=== PATIENT | male | born 1935 | race Caucasian/White ===

== ENCOUNTER 2016-10-21 11:55 | Emergency (ER) | payer MEDICARE ==
[~2016-10-21] VITALS: Ht 175.3 cm; Wt 105.2 kg
[~2016-10-21 11:55] MED LIST: ALBU1AER INH; ALLO100 PO; AZIT250T74 PO; GUAI200UDC PO; LISI40TA PO; LORTA5 PO; OSEL75 PO; SIMV20 PO
[2016-10-21 11:58] VITALS: PULSE 106; RESP 18; TEMP 97.3; O2SAT 94
[2016-10-21 12:15] VITALS: BP 140/73; PULSE 98; RESP 18; O2SAT 95
[2016-10-21] MEDS ORDERED: LISI40TA PO (12:16)
[2016-10-21] MEDS ORDERED: LEVO112T2 PO (12:16)
[2016-10-21] MEDS ORDERED: ALLO300T2 PO (12:16)
[2016-10-21] MEDS ORDERED: SIMV20TA PO (12:16)
[2016-10-21] MEDS ORDERED: PIOG15TA5 PO (12:16)
--- NOTE | 2016-10-21 12:59 | PD ---
HPI Chief Complaint: Fall Time Seen by Provider: 12:27 Travel History International Travel<30 days: No Contact w/Intl Traveler<30days: No Traveled to known affect area: No History of Present Illness HPI 81-year-old male arrives to the ER after he stumbled over his dog at home and is chest wall struck a cabinet on the ground. He's had some erythema overlying the region of the sternum in the inferior costal margin medially. He denies pleuritic chest pain. He has no chest pain at rest. He had no head injury or loss of consciousness. He takes no anticoagulants. He notes the chest wall pain is worse with movement but is otherwise unnoticeable. He also fell on both knees however has been ambulatory since. He has mild pain in the knees. He notes history of a abdominal aortic aneurysm 4.7 cm with the pending follow- up appointment for monitoring. PFSH Past Medical History Hx Anticoagulant Therapy: No AAA: Yes Arthritis: Yes Heart Rhythm Problems: Yes Cancer: No Cardiac Catheterization: Yes Cardiovascular Problems: Yes (HTN) High Cholesterol: Yes Chest Pain: Yes Congestive Heart Failure: No Diabetes: Yes Patient Takes Glucophage: No Endocrine: Yes Gout: Yes Genitourinary: Yes Hypertension: Yes Immune Disorder: No Kidney Stones: Yes (Multiple, required lithotripsy ) Musculoskeletal: Yes (GOUT) Neurologic: No Psychiatric: No Reproductive: No Respiratory: Yes Seizures: No Thyroid Disease: Yes Tetanus Vaccination: Unknown Influenza Vaccination: No Past Surgical History Cardiac Surgery: Yes (Ablation ) Eye Surgery: Yes (BILAT CATARACT SX) Genitourinary Surgery: Yes (KIDNEY STONE SX) Joint Replacement: Yes (BL hips) Pacemaker: No (BILAT HIP REPLACEMENTS.) Other Surgery: Yes (ablation, back surgery) Social History Alcohol Use: Yes (3-5 mixed drinks daily) Tobacco Use: No Substance Use: No Allergies-Medications (Allergen,Severity, Reaction): Coded Allergies: Penicillin (Verified Allergy, Severe, Hives, 10/21/16) Reported Meds & Prescriptions Reported Meds & Active Scripts Active Reported Levothyroxine (Levothyroxine Sodium) 112 Mcg Tab 112 Mcg PO DAILY Pioglitazone (Pioglitazone HCl) 15 Mg Tab 15 Mg PO DAILY Allopurinol 300 Mg Tab 300 Mg PO DAILY Lisinopril 40 Mg Tab 40 Mg PO DAILY Simvastatin 20 Mg Tab 20 Mg PO DAILY Review of Systems Except as stated in HPI: all other systems reviewed are Neg General / Constitutional: No: Fever Physical Exam Narrative GENERAL: 81-year-old male pleasant no acute distress SKIN: Focused skin assessment warm/dry. About 15 cm in total maximum diameter of abrasion/ecchymosis along the left anterior chest wall and slightly towards the left. There is no significant tenderness there. HEAD: Atraumatic. Normocephalic. EYES: Pupils equal and round. No scleral icterus. No injection or drainage. ENT: No nasal bleeding or discharge. Mucous membranes pink and moist. NECK: Trachea midline. No JVD. CARDIOVASCULAR: Regular rate and rhythm. No murmur appreciated. RESPIRATORY: Lungs are clear. There is no significant dyspnea. There is no pain with pressure against the anterior chest wall. GASTROINTESTINAL: Abdomen soft, non-tender, nondistended. Hepatic and splenic margins not palpable. MUSCULOSKELETAL: No obvious deformities. No clubbing. No cyanosis. No edema. Patient is ambulatory. There is normal range of motion at the knees bilaterally. Minimal tenderness upon the patellae present bilaterally. NEUROLOGICAL: Awake and alert. No obvious cranial nerve deficits. Motor grossly within normal limits. Normal speech. PSYCHIATRIC: Appropriate mood and affect; insight and judgment normal. Data Data Last Documented VS Vital Signs Date Time Temp Pulse Resp B/P Pulse Ox O2 Delivery O2 Flow Rate FiO2 10/21/16 12:15 98 18 140/73 95 Room Air 10/21/16 11:58 97.3 Vital signs reviewed MDM Medical Decision Making Medical Screen Exam Complete: Yes Emergency Medical Condition: Yes Medical Record Reviewed: Yes Differential Diagnosis Ecchymosis, contusion, erythema, abrasion, fall, knee fracture, atelectasis, pneumothorax Narrative Course Exam is fairly unimpressive. The patient has no pleuritic chest pain or shortness of breath. We'll send him home with a plan for follow-up with vascular surgery for monitoring of his AAA as scheduled. Diagnosis Primary Impression: Fall Qualified Code: W19.XXXA - Fall, initial encounter Additional Impression: Contusion of chest wall with intact skin Referrals: Primary Care Physician call for appointment Additional Instructions: You have a choice when it comes to health care, and we are glad that you chose [facility]. Hopefully, we have met your expectations on today's visit. You are welcome to return to [facility] at any time, as we are committed to meeting the health care needs of our community. Med/Other Pt SpecificInfo: No Change to Meds Disposition: 01 DISCHARGE HOME Condition: Stable Adi Watt MD Oct 21, 2016 12:59
== END 2016-10-21 13:10 | disposition home or self-care (01) ==
LOC: PHED 11:55
DX: S20.212A Contusion of left front wall of thorax, initial encounter (principal); M25.561 Pain in right knee; M25.562 Pain in left knee; E11.9 Type 2 diabetes mellitus without complications; I10 Essential (primary) hypertension; E07.9 Disorder of thyroid, unspecified; E78.00 Pure hypercholesterolemia, unspecified; W01.0XXA Fall on same level from slipping, tripping and stumbling without subsequent striking against object, initial encounter; Y92.009 Unspecified place in unspecified non-institutional (private) residence as the place of occurrence of the external cause; Z86.79 Personal history of other diseases of the circulatory system; Z87.39 Personal history of other diseases of the musculoskeletal system and connective tissue; Z87.448 Personal history of other diseases of urinary system
CPT/HCPCS: 99283

== ENCOUNTER 2017-06-06 22:47 | Inpatient (IN) | payer MEDICARE ==
[~2017-06-06] VITALS: Ht 175.3 cm; Wt 101.8 kg
[~2017-06-06 22:47] MED LIST changes: -ALBU1AER INH; -ALLO100 PO; +ALLO300T2 PO; -AZIT250T74 PO; -GUAI200UDC PO; +LEVO112T2 PO; -LORTA5 PO; -OSEL75 PO; +PIOG15TA5 PO; -SIMV20 PO; +SIMV20TA PO
[2017-06-06 22:50] VITALS: BP 169/88; PULSE 94; RESP 18; TEMP 98; O2SAT 95
[2017-06-06 23:00] VITALS: O2SAT 99
[2017-06-06] MEDS ORDERED: MONT10TA4 PO (23:06)
[2017-06-06] MEDS ORDERED: COQ1400C PO (23:06)
[2017-06-06] MEDS ORDERED: SODIUM CHLOR 0.9% 1000 ML INJ 1,000 ML IV SCH (23:21)
[2017-06-06] MEDS ORDERED: HYDROmorphone HCL PF 1 MG/ML VIAL IVS ONE (23:30)
[2017-06-06] MEDS ORDERED: SODIUM CHLORIDE 0.9% FLUSH 10 ML FLUSH IV FLUSH PRN (23:30)
[2017-06-06] MEDS ORDERED: ONDANSETRON HCL 4 MG/2 ML VIAL IV PUSH ONE (23:30)
[2017-06-06] MEDS ORDERED: PROCHLORPERAZINE INJ 10 MG/2 ML VIAL IV PUSH ONE (23:30)
[2017-06-06 23:35] LABS: AUTOMATED NEUTROPHIL # 8.2 TH/MM3 (1.8-7.7); BASOPHIL # 0.1 TH/MM3 (0-0.2); BASOPHIL % 0.8 % (0.0-2.0); EOSINOPHIL % 0.2 % (0.0-4.0); HEMATOCRIT 45.9 % (39.0-51.0); HEMO FLAGS DIFF FINAL; LYMPH % 16.1 % (9.0-44.0); LYMPHOCYTE # 1.7 TH/MM3 (1.0-4.8); MEAN CELL VOLUME 99.2 FL (80.0-100.0); MEAN CORPUSCULAR HEMOGLOBIN 33.6 PG (27.0-34.0); MEAN CORPUSCULAR HGB CONC 33.8 % (32.0-36.0); MONO % 5.5 % (0.0-8.0); NEUT % 77.4 % (16.0-70.0); PLATELET COUNT 148 TH/MM3 (150-450); RED BLOOD COUNT 4.63 MIL/MM3 (4.50-5.90); RED CELL DISTRIBUTION WIDTH 13.8 % (11.6-17.2); WHITE BLOOD COUNT 10.7 TH/MM3 (4.0-11.0)
[2017-06-06 23:49] LABS: APTT (PATIENT) 27.1 SEC (24.3-30.1); PROTHROMBIN TIME - PATIENT 10.7 SEC (9.8-11.6)
--- NOTE | 2017-06-06 23:51 | PD ---
HPI Chief Complaint: Abdominal Pain Time Seen by Provider: 23:21 Travel History International Travel<30 days: No Contact w/Intl Traveler<30days: No Traveled to known affect area: No History of Present Illness HPI The patient's 81 years old. He arrives b private vehicle. He has been vomiting for the last few hours. Started after he ate dinner. His had the same food and is not sick. He felt a sudden onset of pain mainly in the left abdomen. He has felt the pain since. No diarrhea. No fever. He has a history of abdominal aortic aneurysm which was last evaluated 10 months ago with a diameter 4.6 cm then. He follows with Dr. Carr in [place]. PFS Past Medical History Hx Anticoagulant Therapy: No AAA: Yes Arthritis: Yes Heart Rhythm Problems: Yes Cancer: No Cardiac Catheterization: Yes (ablation) Cardiovascular Problems: Yes (HTN) High Cholesterol: Yes Chest Pain: Yes Congestive Heart Failure: No Diabetes: Yes Patient Takes Glucophage: No Endocrine: Yes Gout: Yes Genitourinary: Yes Hypertension: Yes Immune Disorder: No Implanted Vascular Access Dvce: Yes Kidney Stones: Yes (Multiple, required lithotripsy ) Musculoskeletal: Yes (GOUT) Neurologic: No Psychiatric: No Reproductive: No Respiratory: Yes Seizures: No Thyroid Disease: Yes Past Surgical History Cardiac Surgery: Yes (Ablation ) Eye Surgery: Yes (BILAT CATARACT SX) Genitourinary Surgery: Yes (KIDNEY STONE SX) Joint Replacement: Yes (BL hips) Other Surgery: Yes (ablation, back surgery) Social History Alcohol Use: Yes (3-5 mixed drinks daily) Tobacco Use: No Substance Use: No Allergies-Medications (Allergen,Severity, Reaction): Coded Allergies: penicillin G (Unverified Allergy, Severe, Hives, 06/06/17) Reported Meds & Prescriptions Reported Meds & Active Scripts Active Reported Coq10 Maximum Strength (Coenzyme Q10 (Ubidecarenone)) 400 Mg Cap 200 Mg PO DAILY Montelukast (Montelukast Sodium) 10 Mg Tab 10 Mg PO HS Levothyroxine (Levothyroxine Sodium) 112 Mcg Tab 112 Mcg PO DAILY Pioglitazone (Pioglitazone HCl) 15 Mg Tab 15 Mg PO DAILY Allopurinol 300 Mg Tab 300 Mg PO DAILY Lisinopril 40 Mg Tab 40 Mg PO DAILY Simvastatin 20 Mg Tab 20 Mg PO DAILY Review of Systems Except as stated in HPI: all other systems reviewed are Neg General / Constitutional: No: Fever Gastrointestinal: Positive: Nausea, Vomiting, Abdominal Pain, No: Diarrhea Physical Exam Narrative GENERAL: 81-year-old male well-nourished well-developed mild to moderate distress frequent dry heaves SKIN: Focused skin assessment warm/dry. Well perfused. HEAD: Atraumatic. Normocephalic. EYES: Pupils equal and round. No scleral icterus. No injection or drainage. ENT: No nasal bleeding or discharge. Mucous membranes pink and moist. NECK: Trachea midline. No JVD. CARDIOVASCULAR: Regular rate and rhythm. No murmur appreciated. RESPIRATORY: No accessory muscle use. Clear to auscultation. Breath sounds equal bilaterally. GASTROINTESTINAL: There is no palpable pulsatile mass. There is minimal tenderness in the left side. MUSCULOSKELETAL: No obvious deformities. No clubbing. No cyanosis. No edema. NEUROLOGICAL: Awake and alert. No obvious cranial nerve deficits. Motor grossly within normal limits. Normal speech. PSYCHIATRIC: Appropriate mood and affect; insight and judgment normal. Data Data Last Documented VS Vital Signs Date Time Temp Pulse Resp B/P (MAP) Pulse Ox O2 Delivery O2 Flow Rate FiO2 06/06/17 22:50 98.0 94 18 169/88 (115) 95 VS reviewed Orders Orders Complete Blood Count With Diff (06/06/17 23:21) Comprehensive Metabolic Panel (06/06/17 23:21) Lipase (06/06/17 23:21) Lactic Acid (06/06/17 23:21) Prothrombin Time / Inr (Pt) (06/06/17 23:21) Act Partial Throm Time (Ptt) (06/06/17 23:21) Urinalysis - C+S If Indicated (06/06/17 23:21) Ct Abd/Pel W Iv Contrast(Rout) (06/06/17 23:21) Iv Access Insert/Monitor (06/06/17 23:21) Ecg Monitoring (06/06/17 23:21) Oximetry (06/06/17 23:21) Sodium Chlor 0.9% 1000 Ml Inj (Ns 1000 M (06/06/17 23:21) Sodium Chloride 0.9% Flush (Ns Flush) (06/06/17 23:30) Hydromorphone Pf Inj (Dilaudid Pf Inj) (06/06/17 23:30) Prochlorperazine Inj (Compazine Inj) (06/06/17 23:30) Ondansetron Inj (Zofran Inj) (06/06/17 23:30) Iohexol 350 Inj (Omnipaque 350 Inj) (06/07/17 00:20) Admit Order (Ed Use Only) (06/07/17 ) Stamping Die Maker / Telemetry JULIO ÉCSAR.Q8H (06/07/17 01:43) Vital Signs (Adult) Q4H (06/07/17 01:43) Diet Npo (06/07/17 Breakfast) Activity Bed Rest (06/07/17 01:43) Notify Dr: Other (06/07/17 01:43) Allopurinol (Zyloprim) (06/07/17 09:00) Levothyroxine (Synthroid) (06/07/17 06:00) Lisinopril (Prinivil) (06/07/17 09:00) Pravastatin (Pravachol) (06/07/17 21:00) Labs Laboratory Tests Test 06/06/17 23:26 06/06/17 23:28 White Blood Count 10.7 TH/MM3 Red Blood Count 4.63 MIL/MM3 Hemoglobin 15.5 GM/DL Hematocrit 45.9 % Mean Corpuscular Volume 99.2 FL Mean Corpuscular Hemoglobin 33.6 PG Mean Corpuscular Hemoglobin Concent 33.8 % Red Cell Distribution Width 13.8 % Platelet Count 148 TH/MM3 Mean Platelet Volume 9.3 FL Neutrophils (%) (Auto) 77.4 % Lymphocytes (%) (Auto) 16.1 % Monocytes (%) (Auto) 5.5 % Eosinophils (%) (Auto) 0.2 % Basophils (%) (Auto) 0.8 % Neutrophils # (Auto) 8.2 TH/MM3 Lymphocytes # (Auto) 1.7 TH/MM3 Monocytes # (Auto) 0.6 TH/MM3 Eosinophils # (Auto) 0.0 TH/MM3 Basophils # (Auto) 0.1 TH/MM3 CBC Comment DIFF FINAL Differential Comment Prothrombin Time 10.7 SEC Prothromb Time International Ratio 1.0 RATIO Activated Partial Thromboplast Time 27.1 SEC Blood Urea Nitrogen 12 MG/DL Creatinine 0.77 MG/DL Random Glucose 163 MG/DL Total Protein 7.8 GM/DL Albumin 3.9 GM/DL Calcium Level 9.3 MG/DL Alkaline Phosphatase 52 U/L Aspartate Amino Transf (AST/SGOT) 31 U/L Alanine Aminotransferase (ALT/SGPT) 25 U/L Total Bilirubin 0.6 MG/DL Sodium Level 137 MEQ/L Potassium Level 4.1 MEQ/L Chloride Level 102 MEQ/L Carbon Dioxide Level 22.5 MEQ/L Anion Gap 13 MEQ/L Estimat Glomerular Filtration Rate 97 ML/MIN Lipase 134 U/L Lactic Acid Level 2.7 mmol/L MDM Medical Decision Making Medical Screen Exam Complete: Yes Emergency Medical Condition: Yes Medical Record Reviewed: Yes Differential Diagnosis Ruptured aneurysm, colitis, pancreatitis, sepsis Narrative Course CBC & BMP Diagram 06/06/17 23:26 Total Protein 7.8, Albumin 3.9, Calcium Level 9.3, Alkaline Phosphatase 52, Aspartate Amino Transf (AST/SGOT) 31, Alanine Aminotransferase (ALT/SGPT) 25, Total Bilirubin 0.6 Last Impressions Abdomen/Pelvis CT 06/06/17 2321 Signed Impressions: Service Date/Time: Wednesday, June 07, 2017 00:17 - CONCLUSION: 1. No acute abnormality demonstrated. 2. There is an infrarenal abdominal aortic aneurysm that measures up to 5.5 cm in size. No evidence of leak or impending rupture. 3. Mild fatty infiltration of the liver. 4. Small calcified stones in the gallbladder. No perceptible inflammatory changes. No ductal stone or ductal dilatation. 5. Sigmoid colon diverticulosis without diverticulitis. Jimi Dee MD Patient reports feeling much better after 0.5 mg hydromorphone and Compazine and Zofran and IV fluids. Case discussed with vascular surgeon Dr. Stovall who requests nothing by mouth status and will evaluate in the morning. Case discussed with hospitalist Dr Almanza. Diagnosis Primary Impression: Abdominal pain Qualified Codes: R10.9 - Unspecified abdominal pain Additional Impression: Abdominal aneurysm Admitting Information Admitting Physician Requests: Admit Adi Watt MD Jun 06, 2017 23:51
[2017-06-06 23:55] LABS: ALT (GPT) 25 U/L (12-78); ANION GAP 13 MEQ/L (5-15); AST (GOT) 31 U/L (15-37); BICARBONATE 22.5 MEQ/L (21.0-32.0); BLOOD UREA NITROGEN 12 MG/DL (7-18); CHLORIDE 102 MEQ/L (98-107); GLOMERULAR FILTRATION RATE 97 ML/MIN (>89); POTASSIUM 4.1 MEQ/L (3.5-5.1); SODIUM (NA) 137 MEQ/L (136-145)
[2017-06-06 23:58] LABS: ALKALINE PHOSPHATASE 52 U/L (45-117); TOTAL BILIRUBIN ADULT 0.6 MG/DL (0.2-1.0)
[2017-06-07] VITALS (8 sets, daily range): BP systolic 112–149; BP diastolic 57–78; PULSE 85–99; RESP 17–20; TEMP 97.6–98.3; O2SAT 93–95
[2017-06-07] MEDS ORDERED: IOHEXOL 350 MG/ML 10 ML VIAL (for RAD DIAG) IVCONTRAST ONE (00:20)
--- NOTE | 2017-06-07 00:46 | RADRPT ---
EXAM DATE/TIME: 06/07/2017 00:17 [facility] COMPARISON: No previous studies available for comparison. INDICATIONS : Left sided abdominal pain. History of abdominal aneurysm. IV CONTRAST: 100 cc Omnipaque 350 (iohexol) IV ORAL CONTRAST: No oral contrast ingested. RADIATION DOSE: 19.90 CTDIvol (mGy) MEDICAL HISTORY : Aneurysm, abdominal. Cardiovascular disease Renal calculi.Hypertension. SURGICAL HISTORY : Bilateral hip replacements. ENCOUNTER: Initial ACUITY: 1 day PAIN SCALE: 4/10 LOCATION: Left abdomen TECHNIQUE: Volumetric scanning of the abdomen and pelvis was performed. Using automated exposure control and ad justment of the mA and/or kV according to patient size, radiation dose was kept as low as reasonably achievable to obtain optimal diagnostic quality images. DICOM format image data is available electro nically for review and comparison. FINDINGS: LOWER LUNGS: The visualized lower lungs are clear. LIVER: Liver is mildly fatty infiltrated. Multiple small stones are seen dependently in the gallbladder. No ductal stone or ductal dilatation. SPLEEN: Normal size without lesion. PANCREAS: Within normal limits. KIDNEYS: No hydronephrosis or hydroureter. No renal calculus. There is an 18 mm benign-appearing cyst of the l eft upper pole. ADRENAL GLANDS: Within normal limits. VASCULAR: There is an infrarenal nominal aortic aneurysm that measures up to 5.5 cm in size. A don't see any in flammatory changes or edema to suggest leak or impending rupture. BOWEL/MESENTERY: Mild sigmoid colon diverticulosis without perceptible diverticulitis. No bowel obstruction. No free a ir. ABDOMINAL WALL: Intact. RETROPERITONEUM: There is no lymphadenopathy. BLADDER: No wall thickening or mass. REPRODUCTIVE: Within normal limits. INGUINAL: There is no lymphadenopathy or hernia. MUSCULOSKELETAL: No acute bony abnormality demonstrated. CONCLUSION: 1. No acute abnormality demonstrated. 2. There is an infrarenal abdominal aortic aneurysm that measures up to 5.5 cm in size. No evidence o f leak or impending rupture. 3. Mild fatty infiltration of the liver. 4. Small calcified stones in the gallbladder. No perceptible inflammatory changes. No ductal stone or ductal dilatation. 5. Sigmoid colon diverticulosis without diverticulitis. Jimi Dee MD on June 07, 2017 at 0:39 Board Certified Radiologist. This report was verified electronically.
[2017-06-07] MEDS ORDERED: BISACODYL 10 MG SUPP RECTAL PRN (01:45)
[2017-06-07] MEDS ORDERED: ONDANSETRON HCL 4 MG/2 ML VIAL IVP PRN (01:45)
[2017-06-07] MEDS ORDERED: MAGNESIUM HYDROXIDE SUSP 30 ML CUP PO PRN (01:45)
[2017-06-07] MEDS ORDERED: ACETAMINOPHEN 325 MG TAB PO PRN (01:45)
[2017-06-07] MEDS ORDERED: SENNOSIDES 8.6 MG TAB PO PRN (01:45)
[2017-06-07] MEDS ORDERED: NALOXONE HCL 0.4 MG/ML AMP IV PUSH PRN (01:45)
[2017-06-07] MEDS ORDERED: SODIUM CHLORIDE 0.9% FLUSH 10 ML FLUSH IV FLUSH PRN (01:45)
[2017-06-07] MEDS ORDERED: LACTULOSE SYRUP 20 GM/30 ML CUP PO PRN (01:45)
[2017-06-07] MEDS ORDERED: hydrALAZINE HCL 20 MG/ML VIAL IV PUSH PRN (01:45)
[2017-06-07] MEDS: SODIUM CHLOR 0.9% 1000 ML INJ 1,000 ML IV SCH ×2 (02:11→11:44)
[2017-06-07 02:28] LABS: BLOOD, URINE NEG (NEG); COMMENT (UR) CULT NOT INDICATED; CULTURE IF INDICATED CULT NOT INDICATED; GLUCOSE,URINE NEG (NEG); KETONE, URINE 40 mg/dL (NEG); MUCUS URINE FEW /lpf (OCC); NITRITE,URINE NEG (NEG); PH, URINE 5.5 (5.0-8.5); SQUAMOUS EPITHELIAL CELL URINE <1 /hpf (0-5); URINE COLOR YELLOW (YELLW/STRAW)
--- NOTE | 2017-06-07 06:13 | HHI.HP ---
[facility]Staff Admission Diagnosis Abdominal Pain; AAA Diagnoses: Travel History International Travel<30 Days: No Contact w/Intl Traveler <30 Da: No Traveled to Known Affected Are: No History of Present Illness 81-year-old male with a past medical history significant for known AAA, hypertension, hyperlipidemia, type 2 diabetes mellitus and a remote history of A. fib status post ablation presents to the ED with intractable nausea/ vomiting. The patient states that he felt ill immediately after eating dinner. He felt sudden onset of pain in his lower abdomen that radiated around to his left flank. He denies fever/chills. Denies diarrhea. The patient has a history of a AAA which was last evaluated in [place] [address] Carr. At that time the patient believes the aneurysm measured 4.[address] of the abdomen/pelvis performed in the emergency department showed an infrarenal abdominal aortic aneurysm that measures up to 5.5 cm in size. No acute abnormalities were found. Patient's lab values were within normal limits with the exception of a lactic acid of 2.7. He was afebrile, vital signs stable. Review of Systems Denies fever or chills Denies blurry vision, otorrhea, rhinorrhea Denies sore throat and cough No chest pain, palpitations, shortness of breath Positive abdominal pain Positive nausea/vomiting. Denies constipation/diarrhea Denies muscle pain/weakness No rashes Past Family Social History Past Medical History Hypertension Hyperlipidemia Type 2 diabetes mellitus AAA Gout History of atrial fibrillation status post ablation Nephrolithiasis Hypothyroidism Past Surgical History Bilateral hip replacement Cardiac ablation for atrial fibrillation Cataract surgery Reported Medications Reported Meds & Active Scripts Active Reported Coq10 Maximum Strength (Coenzyme Q10 (Ubidecarenone)) 400 Mg Cap 200 Mg PO DAILY Montelukast (Montelukast Sodium) 10 Mg Tab 10 Mg PO HS Levothyroxine (Levothyroxine Sodium) 112 Mcg Tab 112 Mcg PO DAILY Pioglitazone (Pioglitazone HCl) 15 Mg Tab 15 Mg PO DAILY Allopurinol 300 Mg Tab 300 Mg PO DAILY Lisinopril 40 Mg Tab 40 Mg PO DAILY Simvastatin 20 Mg Tab 20 Mg PO DAILY Allergies: Coded Allergies: penicillin G (Unverified Allergy, Severe, Hives, 06/06/17) Family History Denies family history of heart disease or diabetes mellitus Social History Denies tobacco use. Reports drinking 5-6 scotches per evening. Denies marijuana or illicit drugs. Physical Exam Vital Signs Vital Signs Date Time Temp Pulse Resp B/P (MAP) Pulse Ox O2 Delivery O2 Flow Rate FiO2 06/07/17 04:00 98.1 93 20 136/68 (90) 94 06/07/17 02:30 98.0 94 20 126/60 (82) 95 06/07/17 02:00 06/06/17 23:00 99 Room Air 06/06/17 22:50 98.0 94 18 169/88 (115) 95 Physical Exam GENERAL: Obese, male lying in bed SKIN: No rashes, ecchymoses or lesions. Cool and dry. HEAD: Atraumatic. Normocephalic. No temporal or scalp tenderness. EYES: Pupils equal round and reactive. Extraocular motions intact. No scleral icterus. No injection or drainage. ENT: Nose without bleeding, purulent drainage or septal hematoma. Throat without erythema, tonsillar hypertrophy or exudate. Uvula midline. Airway patent. NECK: Trachea midline. No JVD or lymphadenopathy. Supple, nontender, no meningeal signs. CARDIOVASCULAR: Regular rate and rhythm without murmurs, gallops, or rubs. RESPIRATORY: Clear to auscultation. Breath sounds equal bilaterally. No wheezes , rales, or rhonchi. GASTROINTESTINAL: Abdomen obese, soft, nondistended. Diffusely tender to palpation worse in the lower quadrants. No peritoneal signs. No guarding. MUSCULOSKELETAL: Extremities without clubbing, cyanosis, or edema. No joint tenderness, effusion, or edema noted. No calf tenderness. Negative Homans sign bilaterally. NEUROLOGICAL: Awake and alert. Cranial nerves II through XII intact. Motor and sensory grossly within normal limits. Normal speech. Laboratory Laboratory Tests Test 06/06/17 23:26 06/06/17 23:28 06/07/17 02:17 06/07/17 05:30 White Blood Count 10.7 Red Blood Count 4.63 Hemoglobin 15.5 Hematocrit 45.9 Mean Corpuscular Volume 99.2 Mean Corpuscular Hemoglobin 33.6 Mean Corpuscular Hemoglobin Concent 33.8 Red Cell Distribution Width 13.8 Platelet Count 148 Mean Platelet Volume 9.3 Neutrophils (%) (Auto) 77.4 Lymphocytes (%) (Auto) 16.1 Monocytes (%) (Auto) 5.5 Eosinophils (%) (Auto) 0.2 Basophils (%) (Auto) 0.8 Neutrophils # (Auto) 8.2 Lymphocytes # (Auto) 1.7 Monocytes # (Auto) 0.6 Eosinophils # (Auto) 0.0 Basophils # (Auto) 0.1 CBC Comment DIFF FINAL Differential Comment Prothrombin Time 10.7 Prothromb Time International Ratio 1.0 Activated Partial Thromboplast Time 27.1 Blood Urea Nitrogen 12 Creatinine 0.77 Random Glucose 163 Total Protein 7.8 Albumin 3.9 Calcium Level 9.3 Alkaline Phosphatase 52 Aspartate Amino Transf (AST/SGOT) 31 Alanine Aminotransferase (ALT/SGPT) 25 Total Bilirubin 0.6 Sodium Level 137 Potassium Level 4.1 Chloride Level 102 Carbon Dioxide Level 22.5 Anion Gap 13 Estimat Glomerular Filtration Rate 97 Lipase 134 Lactic Acid Level 2.7 1.8 Urine Color YELLOW Urine Turbidity CLEAR Urine pH 5.5 Urine Specific [place] 1.038 Urine Protein 30 Urine Glucose (UA) NEG Urine Ketones 40 Urine Occult Blood NEG Urine Nitrite NEG Urine Bilirubin NEG Urine Urobilinogen LESS THAN 2.0 Urine Leukocyte Esterase NEG Urine RBC LESS THAN 1 Urine WBC 2 Urine Squamous Epithelial Cells <1 Urine Amorphous Sediment RARE Urine Mucus FEW Microscopic Urinalysis Comment CULT NOT INDICATED Result Diagram: 06/06/17232506/06/172325 Caprini VTE Risk Assessment Caprini VTE Risk Assessment: Mod/High Risk (score >= 2) Caprini Risk Assessment Model Point Value = 1 Point Value = 2 Point Value = 3 Point Value = 5 Age 41-60 Minor surgery BMI > 25 kg/m2 Swollen legs Varicose veins or History of unexplained or recurrent spontaneous Oral contraceptives or hormone replacement Sepsis (< 1 month) Serious lung disease, including pneumonia (< 1 month) Abnormal pulmonary function Acute myocardial infarction Congestive heart failure (< 1 month) History of inflammatory bowel disease Medical patient at bed rest Age 61-74 Arthroscopic surgery Major open surgery (> 45 min) Laparoscopic surgery (> 45 min) Malignancy Confined to bed (> 72 hours) Immobilizing plaster cast Central venous access Age >= 75 History of VTE Family history of VTE Factor V Leiden Prothrombin [id number] Lupus anticoagulant Anticardiolipin antibodies Elevated serum homocysteine Heparin-induced thrombocytopenia Other congenital or acquired thrombophilia Stroke (< 1 month) Elective arthroplasty Hip, pelvis, or leg fracture Acute spinal cord injury (< 1 month) Prophylaxis Regimen Total Risk Factor Score Risk Level Prophylaxis Regimen 0-1 Low Early ambulation 2 Moderate Order ONE of the following: *Sequential Compression Device (SCD) *Heparin 5000 units SQ BID 3-4 Higher Order ONE of the following medications: *Heparin 5000 units SQ TID *Enoxaparin/Lovenox 40 mg SQ daily (WT < 150 kg, CrCl > 30 mL/min) *Enoxaparin/Lovenox 30 mg SQ daily (WT < 150 kg, CrCl > 10-29 mL/min) *Enoxaparin/Lovenox 30 mg SQ BID (WT < 150 kg, CrCl > 30 mL/min) AND/OR *Sequential Compression Device (SCD) 5 or more Highest Order ONE of the following medications: *Heparin 5000 units SQ TID (Preferred with Epidurals) *Enoxaparin/Lovenox 40 mg SQ daily (WT < 150 kg, CrCl > 30 mL/min) *Enoxaparin/Lovenox 30 mg SQ daily (WT < 150 kg, CrCl > 10-29 mL/min) *Enoxaparin/Lovenox 30 mg SQ BID (WT < 150 kg, CrCl > 30 mL/min) AND *Sequential Compression Device (SCD) Assessment and Plan Assessment and Plan 81-year-old male with history of known AAA presents with intractable nausea/ vomiting. CT of the abdomen and pelvis was significant for a 0.9 cm increase in the aneurysm diameter in the past 10 months. 1. AAA Expanding since last imaging in August 2015, from 4.6 cm to 5.5 cm Consult vascular surgery, appreciate recommendations Patient may benefit from endovascular repair Nothing by mouth 2. Nausea/vomiting No electrolyte abnormalities Resolved with medication Lactic acid has returned to normal 3. Hypertension Continue lisinopril Hydralazine when necessary 4. Hyperlipidemia/hypothyroidism/gout Continue home medications FEN NPO NS at 100 cc/hr Electrolytes: monitor and replete prn Holding pharmacologic anticoagulation for possible procedure Physician Certification 2 Midnight Certification Type: Admission for Inpatient Services Order for Inpatient Services The services are ordered in accordance with Medicare regulations or non- Medicare payer requirements, as applicable. In the case of services not specified as inpatient-only, they are appropriately provided as inpatient services in accordance with the 2-midnight benchmark. Estimated LOS (days): 2 2 days is the estimated time the patient will need to remain in the hospital, assuming treatment plan goals are met and no additional complications. Post-Hospital Plan: Not yet determined Giulia Almanza MD Jun 07, 2017 06:13
[2017-06-07] MEDS ORDERED: DEXTROSE 50% IN WATER 50 ML VIAL(D50) IV PUSH PRN (06:30)
[2017-06-07] MEDS ORDERED: GLUCAGON 1 MG/ML VIAL OTHER PRN (06:30)
[2017-06-07] MEDS ORDERED: LORazepam 2 MG/ML VIAL IV PUSH PRN ×4 (06:30)
[2017-06-07] MEDS ORDERED: FLUMAZENIL 0.5 MG/5 ML VIAL IV PUSH PRN (06:30)
[2017-06-07] MEDS ORDERED: LORazepam 2 MG TAB PO PRN (06:30)
[2017-06-07] MEDS ORDERED: LORazepam 1 MG TAB PO PRN (06:30)
[2017-06-07] MEDS: DOCUSATE SODIUM 50 MG/SENNA 8.6 MG TAB PO SCH ×2 (07:59→21:01)
[2017-06-07] MEDS: LEVOTHYROXINE SODIUM 112 MCG TAB PO SCH (07:59)
[2017-06-07] MEDS: ALLOPURINOL 300 MG TAB PO SCH (07:59)
[2017-06-07] MEDS: LISINOPRIL 20 MG TAB PO SCH (07:59)
[2017-06-07] MEDS: INSULIN ASPART SUPPLEMENTAL SCALE SQ SCH ×4 (08:00→21:00)
[2017-06-07] MEDS: SODIUM CHLORIDE 0.9% FLUSH 10 ML FLUSH IV FLUSH SCH ×2 (09:00→21:00)
--- NOTE | 2017-06-07 09:17 | PD.VS.CON ---
History of Present Illness Chief Complaint: AAA Consult Requested by: ED History of Present Illness 81 yo male with known AAA that he has been following for some time. He presented to ED yesterday with wretching and abdominal pain that has largely subsided. No diarrhea. Notes pain was band-like from LLQ to RLQ. Past/Family/Social History Past Medical History HTN DM hypothyroidism AAA cataracts a-fib Past Surgical History a-fib ablation cataract surgery Family History no known family history of AAA Home Medications Reported Medications Coenzyme Q10 (Ubidecarenone) (Coq10 Maximum Strength) 400 Mg Cap, 200 MG PO DAILY 06/06/17 Montelukast (Montelukast) 10 Mg Tab, 10 MG PO HS, #30 TAB 0 Refills 06/06/17 Levothyroxine (Levothyroxine) 112 Mcg Tab, 112 MCG PO DAILY for Thyroid, #30 TAB 0 Refills 10/21/16 Pioglitazone (Pioglitazone) 15 Mg Tab, 15 MG PO DAILY for Blood Sugar Management , #30 TAB 0 Refills 10/21/16 Allopurinol (Allopurinol) 300 Mg Tab, 300 MG PO DAILY for Gout, #30 TAB 0 Refills 10/21/16 Lisinopril (Lisinopril) 40 Mg Tab, 40 MG PO DAILY for Blood Pressure Management , #30 TAB 0 Refills 10/21/16 Simvastatin (Simvastatin) 20 Mg Tab, 20 MG PO DAILY for Cholesterol Management, #30 TAB 0 Refills 10/21/16 Coded Allergies: penicillin G (Unverified Allergy, Severe, Hives, 06/06/17) Review of Systems Constitutional: COMPLAINS OF: Change in appetite, DENIES: Fever, Chills Gastrointestinal: COMPLAINS OF: Abdominal pain, Vomiting, DENIES: Constipation , Diarrhea Physical Exam Vitals/I&O Date Time Temp Pulse Resp B/P (MAP) Pulse Ox O2 Delivery O2 Flow Rate FiO2 06/07/17 08:00 98.3 95 17 112/57 (75) 93 06/07/17 04:00 98.1 93 20 136/68 (90) 94 06/07/17 02:30 98.0 94 20 126/60 (82) 95 06/07/17 02:00 06/06/17 23:00 99 Room Air 06/06/17 22:50 98.0 94 18 169/88 (115) 95 06/07/17 06/07/17 06/07/17 07:00 15:00 23:00 Intake Total 1000 ml Balance 1000 ml Neuro: alert, oriented, sitting in bed, MALIK HEENT: NC/AT Neck: no JVD Heart: reg rate, no M Lungs: clear B Abdomen: soft, NT, no tenderness in epigastrium to deep palpation + rectus diastasis Vascular: palpable femoral pulses Extremities: no popliteal aneurysms appreciated MALIK Laboratory Tests Test 06/06/17 23:26 06/06/17 23:28 06/07/17 02:17 06/07/17 05:30 White Blood Count 10.7 Red Blood Count 4.63 Hemoglobin 15.5 Hematocrit 45.9 Mean Corpuscular Volume 99.2 Mean Corpuscular Hemoglobin 33.6 Mean Corpuscular Hemoglobin Concent 33.8 Red Cell Distribution Width 13.8 Platelet Count 148 Mean Platelet Volume 9.3 Neutrophils (%) (Auto) 77.4 Lymphocytes (%) (Auto) 16.1 Monocytes (%) (Auto) 5.5 Eosinophils (%) (Auto) 0.2 Basophils (%) (Auto) 0.8 Neutrophils # (Auto) 8.2 Lymphocytes # (Auto) 1.7 Monocytes # (Auto) 0.6 Eosinophils # (Auto) 0.0 Basophils # (Auto) 0.1 CBC Comment DIFF FINAL Differential Comment Prothrombin Time 10.7 Prothromb Time International Ratio 1.0 Activated Partial Thromboplast Time 27.1 Blood Urea Nitrogen 12 Creatinine 0.77 Random Glucose 163 Total Protein 7.8 Albumin 3.9 Calcium Level 9.3 Alkaline Phosphatase 52 Aspartate Amino Transf (AST/SGOT) 31 Alanine Aminotransferase (ALT/SGPT) 25 Total Bilirubin 0.6 Sodium Level 137 Potassium Level 4.1 Chloride Level 102 Carbon Dioxide Level 22.5 Anion Gap 13 Estimat Glomerular Filtration Rate 97 Lipase 134 Lactic Acid Level 2.7 1.8 Urine Color YELLOW Urine Turbidity CLEAR Urine pH 5.5 Urine Specific [place] 1.038 Urine Protein 30 Urine Glucose (UA) NEG Urine Ketones 40 Urine Occult Blood NEG Urine Nitrite NEG Urine Bilirubin NEG Urine Urobilinogen LESS THAN 2.0 Urine Leukocyte Esterase NEG Urine RBC LESS THAN 1 Urine WBC 2 Urine Squamous Epithelial Cells <1 Urine Amorphous Sediment RARE Urine Mucus FEW Microscopic Urinalysis Comment CULT NOT INDICATED Last 48 hours Impressions Abdomen/Pelvis CT 06/06/17 2321 Signed Impressions: Service Date/Time: Wednesday, June 07, 2017 00:17 - CONCLUSION: 1. No acute abnormality demonstrated. 2. There is an infrarenal abdominal aortic aneurysm that measures up to 5.5 cm in size. No evidence of leak or impending rupture. 3. Mild fatty infiltration of the liver. 4. Small calcified stones in the gallbladder. No perceptible inflammatory changes. No ductal stone or ductal dilatation. 5. Sigmoid colon diverticulosis without diverticulitis. Jimi Dee MD Assessment and Plan Plan He has a 5.5. cm AAA but I don't think that is the cause of his abdominal pain. I reviewed the CT and it appears very chronic and not inflamed. Most importantly, the patient was completely nontender to deep epigastric palpation. I think his AAA based on size alone merits repair and I can set this up expeditously as an outpatient. Will need dedicated CTA (1mm cuts) of A/P for accurate pre-operative planning. If he has recurrent abdominal pain, will get CTA while in house and perform EVAR while in house. Otherwise, will arrange as outpatient. Ok to advance diet. Discussed with the patient and his Oziel Stovall MD FACS [employer] plant protection officer [facility] - Heart and Vascular Surgery at [facility] [address] [phone] Oziel Stovall MD Jun 07, 2017 09:17
--- NOTE | 2017-06-07 13:12 | RADRPT ---
EXAM DATE/TIME: 06/07/2017 00:00 [facility] COMPARISON: No previous studies available for comparison. INDICATIONS : Abdominal Pain, AAA TECHNIQUE: Four-cuff ankle and brachial pressures were obtained. Pulse cuff waveform tracings of the ankles were recorded, and ankle-brachial indices were calculated. PRESSURES (mmHg): Brachial (arm): Right 125 Left IV SITE Ankle: Right 153 Left 163 HATTIE: Right 1.22 Left 1.30 TBI: Right 1.22 Left 0.90 PULSED CUFF WAVEFORMS: Demonstrate normal amplitude bilaterally. CONCLUSION: Unremarkable ankle brachial indices. Stevan Eduardo MD on June 07, 2017 at 13:11 Board Certified Radiologist. This report was verified electronically.
[2017-06-07] MEDS ORDERED: PRAVASTATIN SOD 40 MG TAB PO SCH (21:00)
[2017-06-08] VITALS: BP 158/85; PULSE 86; RESP 20; TEMP 98; O2SAT 94
[2017-06-08] MEDS: SODIUM CHLOR 0.9% 1000 ML INJ 1,000 ML IV SCH ×2 (03:34→07:44)
[2017-06-08] MEDS: LEVOTHYROXINE SODIUM 112 MCG TAB PO SCH (06:36)
--- NOTE | 2017-06-08 06:38 | PD.VS.PN ---
Subjective Subjective/Hospital Course Pt with soreness R LQ immediately cephalad to R iliac crest. Not changed with po intake. No other abdominal complaints. Objective Vitals/I&O Date Time Temp Pulse Resp B/P (MAP) Pulse Ox O2 Delivery O2 Flow Rate FiO2 06/08/17 00:00 98.0 86 20 158/85 (109) 94 06/07/17 20:02 99 06/07/17 20:00 97.6 90 20 149/78 (101) 93 06/07/17 16:00 97.9 85 18 144/67 (92) 95 06/07/17 13:58 86 06/07/17 12:00 97.8 88 17 115/68 (84) 94 06/07/17 08:00 98.3 95 17 112/57 (75) 93 06/08/17 06/08/17 06/08/17 07:00 15:00 23:00 Intake Total 1000 ml Balance 1000 ml Physical Exam nontender to palpation anywhere in abdomen, including epigastrium Imaging Last 48 hours Impressions Abdomen/Pelvis CT 06/06/17 0081 Signed Impressions: Service Date/Time: Wednesday, June 07, 2017 00:17 - CONCLUSION: 1. No acute abnormality demonstrated. 2. There is an infrarenal abdominal aortic aneurysm that measures up to 5.5 cm in size. No evidence of leak or impending rupture. 3. Mild fatty infiltration of the liver. 4. Small calcified stones in the gallbladder. No perceptible inflammatory changes. No ductal stone or ductal dilatation. 5. Sigmoid colon diverticulosis without diverticulitis. Jimi Dee MD Assessment and Plan Plan I don't think his AAA is the source of the pain. I would like to get a CTA with thin cuts (previous one was 5mm cuts) for EVAR planning. Ok to d/c home after CTA and I'll arrange f/u for EVAR, likely in 1-2 weeks. If pain doesn't continue to improve, will do EVAR sooner. Pt agrees with plan. Oziel Stovall MD Jun 08, 2017 06:38
[2017-06-08 08:00] VITALS: BP 143/84; PULSE 80; RESP 18; TEMP 97.4; O2SAT 95
[2017-06-08] MEDS: INSULIN ASPART SUPPLEMENTAL SCALE SQ SCH ×2 (08:00→12:00)
[2017-06-08] MEDS: DOCUSATE SODIUM 50 MG/SENNA 8.6 MG TAB PO SCH (08:49)
[2017-06-08] MEDS: LISINOPRIL 20 MG TAB PO SCH (08:49)
[2017-06-08] MEDS: ALLOPURINOL 300 MG TAB PO SCH (08:49)
[2017-06-08] MEDS: SODIUM CHLORIDE 0.9% FLUSH 10 ML FLUSH IV FLUSH SCH (09:00)
[2017-06-08] MEDS ORDERED: INFLUENZA VIRUS VACCINE (QUADRIVALENT) 0.5 ML SYR IM ONE (10:00)
[2017-06-08] MEDS ORDERED: PNEUMOCOCCAL POLYVALENT INJ 25 MCG/0.5 ML SYR IM ONE (10:00)
--- NOTE | 2017-06-08 10:08 | HHI.PR ---
Subjective Remarks Patient reports he is feeling well today. No longer having abdominal pain. Objective Vitals Vital Signs Date Time Temp Pulse Resp B/P (MAP) Pulse Ox O2 Delivery O2 Flow Rate FiO2 06/08/17 08:00 97.4 80 18 143/84 (103) 95 06/08/17 00:00 98.0 86 20 158/85 (109) 94 06/07/17 20:02 99 06/07/17 20:00 97.6 90 20 149/78 (101) 93 06/07/17 16:00 97.9 85 18 144/67 (92) 95 06/07/17 13:58 86 06/07/17 12:00 97.8 88 17 115/68 (84) 94 I/O 06/07/17 06/07/17 06/07/17 06/08/17 06/08/17 06/08/17 07:00 15:00 23:00 07:00 15:00 23:00 Intake Total 1000 ml 400 ml 1490 ml Output Total 1200 ml 400 ml Balance 1000 ml -800 ml 1090 ml Intake Oral 0 ml 400 ml 220 ml IV Total 1000 ml 1270 ml Output Urine Total 1200 ml 400 ml # Voids 2 # Bowel Movements 0 0 Result Diagram: 06/06/17 2326 06/06/17 2326 Imaging Last Impressions Abdomen/Pelvis CT 06/08/17 0000 Signed Impressions: Service Date/Time: Thursday, June 08, 2017 11:07 - CONCLUSION: 1. Multilobular infrarenal abdominal aortic aneurysm measuring maximally 5.1 cm. This would be amenable to endovascular repair. 2. Cholelithiasis Vincent Smith MD Objective Remarks GENERAL: This is a well-nourished, well-developed patient, in no apparent distress. CARDIOVASCULAR: Normal rate and regular rhythm without murmurs, gallops, or rubs. RESPIRATORY: Good respiratory efforts. Breath sounds equal and clear to auscultation bilaterally. GASTROINTESTINAL: Abdomen soft, non-tender, non-distended. Normal active bowel sounds MUSCULOSKELETAL: Extremities without cyanosis, or edema. NEURO: Alert & Oriented x4 to person, place, time, situation. Moves all ext x4 PSYCH: Appropriate mood and affect. A/P Assessment and Plan 81-year-old male with history of known AAA presents with intractable nausea/ vomiting. Initially symptoms certainly due to abdominal aortic aneurysm. CT of the abdomen and pelvis was significant for a 0.9 cm increase in the aneurysm diameter in the past 10 months. Vascular surgery was consulted who evaluated the patient. The patient's symptoms significantly improved and vascular surgery recommend outpatient follow-up as his symptoms was unlikely due to the aneurysms. He is discharged home in good condition and will follow-up outpatient for repair of the aneurysm with vascular surgery. Hypertension Continue lisinopril Hyperlipidemia/hypothyroidism/gout Continue home medications Discharge Planning Discharge home in good condition Follow-up outpatient with: Vascular surgery Activity: Regular as tolerated Diet: Heart healthy Meds: Per med rec Cris Russell MD Jun 08, 2017 10:08
--- NOTE | 2017-06-08 10:10 | HHI.DCPOC ---
Discharge Care Plan Diagnosis: (1) Abdominal aneurysm (2) Abdominal pain Goals to Promote Your Health * To prevent worsening of your condition and complications * To maintain your health at the optimal level Directions to Meet Your Goals Take your medications as prescribed Follow your dietary instruction Follow activity as directed Keep your appointments as scheduled Take your immunizations and boosters as scheduled If your symptoms worsen call your PCP, if no PCP go to Urgent Care Center or Emergency Room Smoking is Dangerous to Your Health. Avoid second hand smoke Call the 24-hour hour crisis hotline for domestic abuse at Cris Russell MD Jun 08, 2017 10:10
[2017-06-08] MEDS ORDERED: IOHEXOL 350 MG/ML 10 ML VIAL (for RAD DIAG) IVCONTRAST ONE (11:54)
--- NOTE | 2017-06-08 14:36 | RADRPT ---
EXAM DATE/TIME: 06/08/2017 11:07 [facility] COMPARISON: No previous studies available for comparison. INDICATIONS : Abdominal aortic aneurysm. IV CONTRAST: 70 cc Omnipaque 350 (iohexol) IV ORAL CONTRAST: No oral contrast ingested. RADIATION DOSE: 7.34 CTDIvol (mGy) MEDICAL HISTORY : Aneurysm, abdominal. Cardiovascular disease Renal calculi.Hypertension. SURGICAL HISTORY : None. ENCOUNTER: Initial ACUITY: 1 day PAIN SCALE: 4/10 LOCATION: Bilateral upper quadrant TECHNIQUE: Volumetric scanning was performed using a multi-row detector CT scanner. The data was post processed with a variety of visualization algorithms including full volume maximum intensity projection, multi -planar sliding thin slab reformation, curved planar reformation, and surface rendering techniques. Using automated exposure control and adjustment of the mA and/or kV according to patient size, radiat ion dose was kept as low as reasonably achievable to obtain optimal diagnostic quality images. DICOM format image data is available electronically for review and comparison. FINDINGS: There is parenchymal scarring on the left. Coronary artery calcifications are present. The liver and spleen are normal in size and no focal defects are identified. There are multiple stone s within the gallbladder without wall thickening or pericholecystic fluid the largest measuring 3 mm. The pancreas demonstrates no evidence of mass and there is no dilatation of the pancreatic duct. The adrenal glands and kidneys appear normal bilaterally. No hydronephrosis or mass lesions are identifi ed. Examination demonstrates an infrarenal abdominal aortic aneurysm measuring 5.1 cm at the level the or aiyana bifurcation with bilobular components more superiorly measuring 4 cm and 4.7 cm. This terminates at the level of aortic bifurcation. The iliac vessels are intact. The renal artery origins are patent bilaterally. The celiac axis and superior mesenteric artery origins are also patent. CONCLUSION: 1. Multilobular infrarenal abdominal aortic aneurysm measuring maximally 5.1 cm. This would be amenab le to endovascular repair. 2. Cholelithiasis Vincent Smith MD on June 08, 2017 at 14:30 Board Certified Radiologist. This report was verified electronically.
== END 2017-06-08 13:59 | disposition home or self-care (01) | DRG 301 ==
LOC: NEPE 22:47 → NEDA 06-07 01:45 → N07A 06-07 02:42
PROVIDERS: ADMIT Family Medicine; ATTEND Family Medicine
DX: I71.4 Abdominal aortic aneurysm, without rupture (principal); E11.9 Type 2 diabetes mellitus without complications; I10 Essential (primary) hypertension; E78.5 Hyperlipidemia, unspecified; R11.2 Nausea with vomiting, unspecified; E03.9 Hypothyroidism, unspecified; M10.9 Gout, unspecified; Z23 Encounter for immunization; M19.90 Unspecified osteoarthritis, unspecified site; Z88.0 Allergy status to penicillin; Z96.643 Presence of artificial hip joint, bilateral
CPT/HCPCS: 74174; 74177; 80053; 81001; 82948; 83605; 83690; 85025; 85610; 85730; 90686; 90732; 93922; 96361; 96374; 96375; J0780; J1170; J2405; J7030; Q2038; Q9967

== ENCOUNTER 2017-06-29 08:00 | Inpatient (IN) | payer MEDICARE ==
[~2017-06-29] VITALS: Ht 175.3 cm; Wt 104.5 kg
[~2017-06-29 08:00] MED LIST changes: +COQ1400C PO; +MONT10TA4 PO
[2017-06-30] MEDS ORDERED: METOPROLOL TARTRATE 25 MG TAB PO PRN (10:00)
[2017-06-30] MEDS ORDERED: SODIUM CHLORID 0.9% 500 ML IV PRN (10:00)
[2017-06-30] MEDS ORDERED: CHLORHEXIDINE GLUCONATE 2 % 1 PACK (2 CLOTHS) TOPICAL PRN (10:00)
[2017-06-30] MEDS ORDERED: LACTATED RINGER'S 1000 ML IV PRN (10:00)
[2017-06-30] MEDS ORDERED: POVIDONE IODINE 5% (ANTISEPSIS KIT) 4 APPLICATIONS EACH NARE PRN (10:00)
--- NOTE | 2017-06-30 10:57 | HHI.HP ---
History of Present Illness Chief Complaint: AAA History of Present Illness 81 yo male with asymptomatic AAA. Adm with abdominal pain in Nov but not related. Abdominal pain better. Ready for elective endovascular repair. Past/Family/Social History Past Medical History HTN DM AAA A fib cataracts Past Surgical History cataracts ablation Social History not present smoker Family History NC Home Medications Reported Medications Coenzyme Q10 (Ubidecarenone) (Coq10 Maximum Strength) 400 Mg Cap, 200 MG PO DAILY 06/06/17 Montelukast (Montelukast) 10 Mg Tab, 10 MG PO HS, #30 TAB 0 Refills 06/06/17 Levothyroxine (Levothyroxine) 112 Mcg Tab, 112 MCG PO DAILY for Thyroid, #30 TAB 0 Refills 10/21/16 Pioglitazone (Pioglitazone) 15 Mg Tab, 15 MG PO DAILY for Blood Sugar Management , #30 TAB 0 Refills 10/21/16 Allopurinol (Allopurinol) 300 Mg Tab, 300 MG PO DAILY for Gout, #30 TAB 0 Refills 10/21/16 Lisinopril (Lisinopril) 40 Mg Tab, 40 MG PO DAILY for Blood Pressure Management , #30 TAB 0 Refills 10/21/16 Simvastatin (Simvastatin) 20 Mg Tab, 20 MG PO DAILY for Cholesterol Management, #30 TAB 0 Refills 10/21/16 Coded Allergies: penicillin G (Unverified Allergy, Severe, Hives, 06/29/17) Review of Systems Constitutional: COMPLAINS OF: Night Sweats, DENIES: Fever Cardiovascular: DENIES: Chest pain Gastrointestinal: DENIES: Abdominal pain Physical Exam Vitals/I&O Date Time Temp Pulse Resp B/P (MAP) Pulse Ox O2 Delivery O2 Flow Rate FiO2 06/30/17 10:09 97.6 73 18 141/87 (105) 97 Neuro: alert, oriented, jovial HEENT: NC/AT Neck: no JVD; trachea midline Heart: reg rate, no M Lungs: clear B Abdomen: NT Vascular: palp femoral Extremities: no CCE Hct 46 plt 148 cr 0.8 CTA reviewed Caprini VTE Risk Assessment Caprini VTE Risk Assessment: Mod/High Risk (score >= 2) Caprini Risk Assessment Model Point Value = 1 Point Value = 2 Point Value = 3 Point Value = 5 Age 41-60 Minor surgery BMI > 25 kg/m2 Swollen legs Varicose veins or History of unexplained or recurrent spontaneous Oral contraceptives or hormone replacement Sepsis (< 1 month) Serious lung disease, including pneumonia (< 1 month) Abnormal pulmonary function Acute myocardial infarction Congestive heart failure (< 1 month) History of inflammatory bowel disease Medical patient at bed rest Age 61-74 Arthroscopic surgery Major open surgery (> 45 min) Laparoscopic surgery (> 45 min) Malignancy Confined to bed (> 72 hours) Immobilizing plaster cast Central venous access Age >= 75 History of VTE Family history of VTE Factor V Leiden Prothrombin [id number] Lupus anticoagulant Anticardiolipin antibodies Elevated serum homocysteine Heparin-induced thrombocytopenia Other congenital or acquired thrombophilia Stroke (< 1 month) Elective arthroplasty Hip, pelvis, or leg fracture Acute spinal cord injury (< 1 month) Prophylaxis Regimen Total Risk Factor Score Risk Level Prophylaxis Regimen 0-1 Low Early ambulation 2 Moderate Order ONE of the following: *Sequential Compression Device (SCD) *Heparin 5000 units SQ BID 3-4 Higher Order ONE of the following medications: *Heparin 5000 units SQ TID *Enoxaparin/Lovenox 40 mg SQ daily (WT < 150 kg, CrCl > 30 mL/min) *Enoxaparin/Lovenox 30 mg SQ daily (WT < 150 kg, CrCl > 10-29 mL/min) *Enoxaparin/Lovenox 30 mg SQ BID (WT < 150 kg, CrCl > 30 mL/min) AND/OR *Sequential Compression Device (SCD) 5 or more Highest Order ONE of the following medications: *Heparin 5000 units SQ TID (Preferred with Epidurals) *Enoxaparin/Lovenox 40 mg SQ daily (WT < 150 kg, CrCl > 30 mL/min) *Enoxaparin/Lovenox 30 mg SQ daily (WT < 150 kg, CrCl > 10-29 mL/min) *Enoxaparin/Lovenox 30 mg SQ BID (WT < 150 kg, CrCl > 30 mL/min) AND *Sequential Compression Device (SCD) Assessment and Plan Plan EVAR today. Risks and benefits discussed with patient and family. to OR Discharge Planning : [phone] Oziel Stovall MD Jun 30, 2017 10:57
[2017-06-30] MEDS ORDERED: HEPARIN SODIUM - IV 10,000 UNITS/10 ML VIAL ONE (11:37)
[2017-06-30] MEDS ORDERED: PROTAMINE SULFATE 50 MG/5 ML VIAL ONE (11:38)
[2017-06-30] MEDS ORDERED: ACETAMINOPHEN 1000 MG/100 ML 100 ML IV ONE (11:39)
[2017-06-30] MEDS ORDERED: VANCOMYCIN HCL 1000 MG VIAL ONE (12:09)
[2017-06-30] MEDS ORDERED: SODIUM CHLOR 0.9% 250 ML INJ 250 ML ONE (12:09)
[2017-06-30] MEDS ORDERED: IOHEXOL 300 MG/ML 100 ML BTL (for Rad CT) OTHER ONE (12:15)
--- NOTE | 2017-06-30 13:28 | HHI.PR ---
Immediate Post Op Note Procedure Date: Jun 30, 2017 Pre Op Diagnosis: AAA Post Op Diagnosis: AAA Surgeon: Oziel Stovall Linux Network Administrator(s): Dayana Vale Procedure: EVAR with 2 docking limbs B POWER WASHER Perclose Findings: successful exclusion of AAA + Doppler signals in feet Complications: none Specimen(s) removed: none Estimated blood loss: 75mL Anesthesia: General Drains: None Fluids: 2400mL IVF Urinary Output (mLs): 400 Patient to: PACU Patient Condition: Good Implant/Devices: SEE IMPLANT LOG (if applicable) Date/Time of Procedure: SEE SURGICAL CARE RECORD Oziel Stovall MD Jun 30, 2017 13:28
[2017-06-30] MEDS ORDERED: LACTULOSE SYRUP 20 GM/30 ML CUP PO PRN (13:30)
[2017-06-30] MEDS ORDERED: BISACODYL 10 MG SUPP RECTAL PRN (13:30)
[2017-06-30] MEDS ORDERED: SENNOSIDES 8.6 MG TAB PO PRN (13:30)
[2017-06-30] MEDS ORDERED: MAGNESIUM HYDROXIDE SUSP 30 ML CUP PO PRN (13:30)
[2017-06-30] MEDS ORDERED: HYDROmorphone HCL 2 MG TAB PO PRN (13:30)
--- NOTE | 2017-06-30 14:08 | EKG ---
Date Performed: 06/30/2017 Time Performed: 10:27:21 PTAGE: 82 years EKG: Sinus rhythm WITH FIRST DEGREE AV BLOCK ABNORMAL ECG Compared to prior tracing no significant change PREVIOUS TRACING : 08/28/2014 19.03 DOCTOR: Lilly Hoffman Interpretating Date/Time 06/30/2017 14:06:08
[2017-06-30] MEDS ORDERED: *morphine SULFATE 8 MG/ML PERIprocedure ONLY ONE (14:09)
[2017-06-30] MEDS ORDERED: DO NOT ADM ANY ANTICOAGULANT DRUGS PRN (15:00)
[2017-06-30 16:15] VITALS: BP 117/67; PULSE 76; RESP 16; TEMP 98; O2SAT 99
[2017-06-30 19:30] VITALS: BP 148/80; PULSE 72; PULSE 78; RESP 18; TEMP 98.4; O2SAT 98
[2017-06-30] MEDS: FAMOTIDINE 20 MG TAB PO SCH (20:58)
[2017-06-30] MEDS: DOCUSATE SODIUM 50 MG/SENNA 8.6 MG TAB PO SCH (20:58)
[2017-06-30] MEDS: PRAVASTATIN SOD 40 MG TAB PO SCH (20:58)
[2017-06-30] MEDS: MONTELUKAST SODIUM 10 MG TAB PO SCH (21:00)
[2017-06-30 23:00] VITALS: PULSE 91
[2017-07-01] VITALS (11 sets, daily range): BP systolic 112–156; BP diastolic 57–83; PULSE 87–100; RESP 16–20; TEMP 99.1–100.8; O2SAT 92–98
[2017-07-01 05:59] LABS: HEMATOCRIT 38.5 % (39.0-51.0); MEAN CELL VOLUME 99.2 FL (80.0-100.0); MEAN CORPUSCULAR HEMOGLOBIN 33.2 PG (27.0-34.0); MEAN CORPUSCULAR HGB CONC 33.5 % (32.0-36.0); PLATELET COUNT 104 TH/MM3 (150-450); RED BLOOD COUNT 3.89 MIL/MM3 (4.50-5.90); RED CELL DISTRIBUTION WIDTH 13.4 % (11.6-17.2); REVIEW FLAG FINAL; WHITE BLOOD COUNT 7.9 TH/MM3 (4.0-11.0)
[2017-07-01 06:18] LABS: BICARBONATE 28.9 MEQ/L (21.0-32.0); POTASSIUM 4.3 MEQ/L (3.5-5.1)
[2017-07-01] MEDS: LEVOTHYROXINE SODIUM 112 MCG TAB PO SCH (07:59)
[2017-07-01] MEDS: FAMOTIDINE 20 MG TAB PO SCH ×2 (08:09→21:01)
[2017-07-01] MEDS: PIOGLITAZONE HCL 15 MG TAB PO SCH (08:09)
[2017-07-01] MEDS: ALLOPURINOL 300 MG TAB PO SCH (08:09)
[2017-07-01] MEDS: ASPIRIN EC 325 MG TABEC PO SCH (08:09)
[2017-07-01] MEDS: DOCUSATE SODIUM 50 MG/SENNA 8.6 MG TAB PO SCH ×2 (08:09→21:01)
[2017-07-01] MEDS: LISINOPRIL 20 MG TAB PO SCH (08:10)
[2017-07-01] MEDS ORDERED: COENZYME Q10 200 MG PO SCH (09:00)
[2017-07-01] MEDS ORDERED: TAMSULOSIN HCL 0.4 MG CAP PO SCH (09:00)
--- NOTE | 2017-07-01 09:40 | MP ---
cc: TONY STOVALL MD DATE OF SURGERY 06/30/2017 PREOPERATIVE DIAGNOSIS Abdominal aortic aneurysm POSTOPERATIVE DIAGNOSIS Abdominal aortic aneurysm PROCEDURE Endovascular exclusion of an abdominal aortic aneurysm with a bifurcated device using two docking limbs. ATTENDING PHYSICIAN Tony Stovall MD JEWELRY CASTING MODEL MAKER SURGEON Dayana Carpenter ANESTHESIA General INDICATIONS Mr. Walsh is a 82-year-old gentleman with an abdominal aortic aneurysm that appears amenable to endovascular repair. He is taken to the operating room for this procedure. DESCRIPTION OF PROCEDURE Informed consent was obtained from the patient. He was taken to the operating room and placed supine on the operating room table and an appropriate time-out was taken to ensure the patient's identity, operative site and planned procedure. One gram of vancomycin was initiated prior to the skin incision and will be discontinued after a single preoperative dose. Vancomycin was chosen because of the patient's penicillin allergy. Everyone in the room agreed with the time out and we proceeded. He was prepped from nipples to his knees. A 21 gauge micropuncture needle was used to access both common femoral arteries. This was exchanged using Seldinger technique for micropuncture sheath through which a 0.035 STORQ wire was introduced. The micropuncture sheath was exchanged for a 5-Macanese sheath which was used to dilate skin, subcutaneous tracts and arteriotomy. Two Perclose ProGlide sutures were inserted and tagged. These will be used later. A short 8-Macanese sheath was placed in the right and an 8-Macanese 25 cm was placed on the left. The patient was systemically heparinized and throughout the remainder of the case, the ACT was kept greater than 250. STORQ wires were advanced up the proximal descending thoracic aorta. Over the left hand STORQ wire, a flush catheter was placed over the right hand STORQ wire and a vertebral catheter was placed and the STORQ was exchanged for a single curved Lunderquist wire. The vertebral catheter was removed. The short 8-Macanese sheath was removed and Kyle dilators were used to dilate the skin, subcutaneous tract and arteriotomy and the main device, which was a StrataCloud-FreeWavz 30 x 111 was introduced up the right-hand side orientating it appropriately. An angiogram was performed which located the renal arteries and the device was deployed such that the proximal aspect of fabric was immediately caudal to the lower renal artery. The top cap was then released thereby deploying the bare metal proximal spring. A road-runner wire was then advanced through the flush catheter up the left-hand side and the flush catheter was exchanged for a vertebral catheter and using the vertebral catheter and the road runner, we were able to navigate into the contralateral gate and this was confirmed angiographically. The Lunderquist wire was then advanced up to the proximal descending thoracic aorta from the left-hand side and the vertebral catheter was exchanged for a marker flush catheter. This was used to locate the left hypogastric artery and once this was located, the contralateral limb, which was a Zenith 16 x 56 was introduced and deployed with sufficient overlap. The remainder of the main device was deployed. The top cap was recaptured. A marker catheter was then placed in the right-hand delivery sheath which allowed location of the right hypogastric artery and the right or ipsilateral limb was then inserted and deployed. This was a Zenith 20 x 74 limb. The proximal and distal ends were all balloon angioplastied with a Coda balloon and a completion angiogram showed excellent result without any recoil extravasation. There was no type 1A, B or type 3 endoleak and both renal arteries and both hypogastric arteries filled quite nicely. The wire, catheter and sheaths were removed. Manual pressure was in the groins as the Perclose were tied down. There were good Doppler signals in the feet and the heparin reversed with protamine. 4-0 Monocryl was placed in both groin skin incisions. Sponge and needle counts were correct at the end of the case. I was present and scrubbed for the entire procedure. MD SABRINA Luna/STAN /4:45 AM /9:06 AM
--- NOTE | 2017-07-01 10:20 | PD.VS.PN ---
Subjective POD #: 1 Procedure(s): EVAR Subjective/Hospital Course doing well except urinary retention since Hollis out. After voiding trial, had bladder scan for 650. Pt c/o appropriate lower abdominal discomfort. No groin pain and feet ok Objective Vitals/I&O Date Time Temp Pulse Resp B/P (MAP) Pulse Ox O2 Delivery O2 Flow Rate FiO2 07/01/17 10:10 95 Nasal Cannula 2.00 07/01/17 08:00 99.7 89 16 139/80 (99) 95 07/01/17 08:00 98 Nasal Cannula 3.00 07/01/17 08:00 89 07/01/17 05:40 18 07/01/17 03:30 94 Nasal Cannula 3.00 07/01/17 03:30 100 07/01/17 03:00 99.1 94 20 138/73 (94) 94 07/01/17 00:00 100.8 98 18 144/83 (103) 98 06/30/17 23:30 93 Nasal Cannula 2.00 06/30/17 23:00 91 06/30/17 19:30 97 Nasal Cannula 2.00 06/30/17 19:30 72 06/30/17 19:30 98.4 78 18 148/80 (102) 98 06/30/17 16:15 98.0 76 16 117/67 (84) 99 06/30/17 16:15 99 Nasal Cannula 2.00 06/30/17 16:15 76 06/30/17 16:15 16 06/30/17 16:00 68 16 110/55 (73) 98 Nasal Cannula 2 06/30/17 15:30 70 16 106/57 (73) 98 Nasal Cannula 2 06/30/17 15:00 72 16 105/56 (72) 95 Nasal Cannula 2 06/30/17 14:45 72 16 101/59 (73) 97 Nasal Cannula 2 06/30/17 14:30 76 16 109/57 (74) 95 Nasal Cannula 2 06/30/17 14:15 76 16 104/55 (71) 97 Nasal Cannula 2 06/30/17 14:00 80 16 120/62 (81) 97 Nasal Cannula 2 06/30/17 13:47 97.5 86 16 111/59 (76) 93 Nasal Cannula 2 07/01/17 07/01/17 07/01/17 07:00 15:00 23:00 Intake Total 960 ml Output Total 325 ml Balance 635 ml Exam: L groin ecchymotic but minimal tenderness R groin soft feet warm and palpable pulses Laboratory Laboratory Tests Test 07/01/17 04:57 White Blood Count 7.9 Red Blood Count 3.89 Hemoglobin 12.9 Hematocrit 38.5 Mean Corpuscular Volume 99.2 Mean Corpuscular Hemoglobin 33.2 Mean Corpuscular Hemoglobin Concent 33.5 Red Cell Distribution Width 13.4 Platelet Count 104 Mean Platelet Volume 9.2 Blood Urea Nitrogen 8 Creatinine 0.75 Random Glucose 144 Calcium Level 8.3 Sodium Level 139 Potassium Level 4.3 Chloride Level 104 Carbon Dioxide Level 28.9 Anion Gap 6 Estimat Glomerular Filtration Rate 99 Assessment and Plan Plan POD#1 s/p EVAR urinary retention 1. I/O cath this morning and start Flomax 2. If able to void, can d/c later today, otherwise will replace Hollis and call urology Discharge Planning Today if voids : [phone] Oziel Stovall MD Jul 01, 2017 10:20
[2017-07-01] MEDS ORDERED: ENOXAPARIN SODIUM 40 MG/0.4 ML SYRINGE SQ SCH (13:00)
[2017-07-01] MEDS: MONTELUKAST SODIUM 10 MG TAB PO SCH (21:01)
[2017-07-01] MEDS: PRAVASTATIN SOD 40 MG TAB PO SCH (21:01)
[2017-07-02 03:09] VITALS: BP 123/68; PULSE 99; RESP 18; TEMP 99.3; O2SAT 94
[2017-07-02 03:10] VITALS: PULSE 109
[2017-07-02 06:31] LABS: HEMATOCRIT 36.8 % (39.0-51.0); MEAN CELL VOLUME 99.1 FL (80.0-100.0); MEAN CORPUSCULAR HEMOGLOBIN 33.9 PG (27.0-34.0); MEAN CORPUSCULAR HGB CONC 34.2 % (32.0-36.0); PLATELET COUNT 90 TH/MM3 (150-450); RED BLOOD COUNT 3.71 MIL/MM3 (4.50-5.90); RED CELL DISTRIBUTION WIDTH 13.8 % (11.6-17.2); WHITE BLOOD COUNT 7.2 TH/MM3 (4.0-11.0)
[2017-07-02 06:42] LABS: REVIEW FLAG FINAL
[2017-07-02 06:51] LABS: BICARBONATE 27.1 MEQ/L (21.0-32.0); POTASSIUM 3.9 MEQ/L (3.5-5.1)
[2017-07-02 07:43] VITALS: PULSE 93
[2017-07-02 07:44] VITALS: BP 140/72; PULSE 92; RESP 18; TEMP 99.3; O2SAT 95
[2017-07-02] MEDS ORDERED: TAMSULOSIN HCL 0.4 MG CAP PO SCH (09:00)
[2017-07-02] MEDS: ALLOPURINOL 300 MG TAB PO SCH (09:03)
[2017-07-02] MEDS: ASPIRIN EC 325 MG TABEC PO SCH (09:04)
[2017-07-02] MEDS: LISINOPRIL 20 MG TAB PO SCH (09:04)
[2017-07-02] MEDS: LEVOTHYROXINE SODIUM 112 MCG TAB PO SCH (09:04)
[2017-07-02] MEDS: DOCUSATE SODIUM 50 MG/SENNA 8.6 MG TAB PO SCH (09:04)
[2017-07-02] MEDS: FAMOTIDINE 20 MG TAB PO SCH (09:04)
[2017-07-02] MEDS: PIOGLITAZONE HCL 15 MG TAB PO SCH (09:04)
--- NOTE | 2017-07-02 09:23 | PD.VS.PN ---
Subjective POD #: 2 Procedure(s): EVAR Subjective/Hospital Course voiding well, scot po ready for d/c Objective Vitals/I&O Date Time Temp Pulse Resp B/P (MAP) Pulse Ox O2 Delivery O2 Flow Rate FiO2 07/02/17 07:44 99.3 92 18 140/72 (94) 95 07/02/17 07:43 93 07/02/17 07:42 95 1.00 07/02/17 03:10 109 07/02/17 03:09 95 1.00 07/02/17 03:09 99.3 99 18 123/68 (86) 94 07/01/17 23:30 95 1.00 07/01/17 23:30 99.6 99 18 156/75 (102) 95 07/01/17 23:00 99 07/01/17 19:40 99.1 92 18 119/60 (79) 92 07/01/17 19:40 92 1.00 07/01/17 19:00 98 07/01/17 16:00 99.5 97 16 125/57 (79) 98 07/01/17 16:00 97 07/01/17 16:00 98 Nasal Cannula 2.00 07/01/17 11:00 99.5 87 16 112/63 (79) 94 07/01/17 11:00 87 07/01/17 11:00 95 Nasal Cannula 2.00 07/01/17 10:20 16 07/01/17 10:10 95 Nasal Cannula 2.00 07/02/17 07/02/17 07/02/17 07:00 15:00 23:00 Intake Total 480 ml Output Total 1275 ml Balance -795 ml Exam: resting comfortably groins ecchymotic feet ok Laboratory Laboratory Tests Test 07/02/17 05:22 White Blood Count 7.2 Red Blood Count 3.71 Hemoglobin 12.6 Hematocrit 36.8 Mean Corpuscular Volume 99.1 Mean Corpuscular Hemoglobin 33.9 Mean Corpuscular Hemoglobin Concent 34.2 Red Cell Distribution Width 13.8 Platelet Count 90 Mean Platelet Volume 9.6 Blood Urea Nitrogen 7 Creatinine 0.66 Random Glucose 139 Calcium Level 8.6 Sodium Level 135 Potassium Level 3.9 Chloride Level 101 Carbon Dioxide Level 27.1 Anion Gap 7 Estimat Glomerular Filtration Rate 115 Assessment and Plan Plan POD#2 s/p EVAR urinary retention resolved D/C today Discharge Planning Today : [phone] Oziel Stovall MD Jul 02, 2017 09:23
--- NOTE | 2017-07-02 09:24 | PD.VS.DC ---
Discharge Summary Admission Date: Jun 30, 2017 at 09:02 Discharge Date: Jul 02, 2017 Admission Diagnosis: (1) H/O endovascular stent graft for abdominal aortic aneurysm Discharge Diagnosis: (1) H/O endovascular stent graft for abdominal aortic aneurysm ICD Codes: Z95.828 - Presence of other vascular implants and grafts Brief History from admission 81 yo male with asymptomatic AAA. Adm with abdominal pain in Nov but not related. Abdominal pain better. Ready for elective endovascular repair. Procedure(s): EVAR Significant Findings Laboratory Tests Test 07/01/17 04:57 07/02/17 05:22 Red Blood Count 3.89 MIL/MM3 (4.50-5.90) 3.71 MIL/MM3 (4.50-5.90) Hemoglobin 12.9 GM/DL (13.0-17.0) 12.6 GM/DL (13.0-17.0) Hematocrit 38.5 % (39.0-51.0) 36.8 % (39.0-51.0) Platelet Count 104 TH/MM3 (150-450) 90 TH/MM3 (150-450) Random Glucose 144 MG/DL (74-106) 139 MG/DL (74-106) Calcium Level 8.3 MG/DL (8.5-10.1) Sodium Level 135 MEQ/L (136-145) Hospital Course: Pt underwent percutaneous EVAR and did well post-operatively. Urinary retention req I/O. Ready for d/c POD#2. Cristobal po, voiding, pain controlled. Discharge Condition: Good Discharge Disposition: Discharge Home Any questions or concerns: Call [facility] at [facility] [phone] Oziel Stovall MD Jul 02, 2017 09:24
== END 2017-07-02 10:43 | disposition home or self-care (01) | DRG 269 ==
LOC: HSDI 06-30 09:02 → HCVI 06-30 16:20
PROVIDERS: ADMIT Surgery; ATTEND Surgery
PROC: 04V03D6 (ICD-10-PCS; principal; 2017-06-30 11:30)
DX: I71.4 Abdominal aortic aneurysm, without rupture (principal); E11.9 Type 2 diabetes mellitus without complications; I10 Essential (primary) hypertension; R33.9 Retention of urine, unspecified
CPT/HCPCS: 80048; 82948; 85027; 86850; 86900; 86901; 93005; J0131; J1644; J1650; J2270; J2720; J3370; J7050; J7120; Q9967

== ENCOUNTER 2017-09-15 15:39 | Emergency (ER) | payer MEDICARE ==
[~2017-09-15] VITALS: Ht 175.3 cm; Wt 100.0 kg
[2017-09-15 15:47] VITALS: PULSE 96; RESP 20; TEMP 98.3; O2SAT 95
[2017-09-15 16:47] VITALS: BP 123/58; PULSE 86; RESP 20; O2SAT 96
[2017-09-15] MEDS ORDERED: SODIUM CHLOR 0.9% 1000 ML INJ 1,000 ML IV ONE (17:03)
[2017-09-15 17:08] LABS: AUTOMATED NEUTROPHIL # 7.4 TH/MM3 (1.8-7.7); BASOPHIL # 0.1 TH/MM3 (0-0.2); BASOPHIL % 0.6 % (0.0-2.0); BILIRUBIN, URINE NEG (NEG); BLOOD, URINE TRACE (NEG); EOSINOPHIL # 0.2 TH/MM3 (0-0.4); EOSINOPHIL % 1.7 % (0.0-4.0); GLUCOSE,URINE NEG (NEG); HEMATOCRIT 42.3 % (39.0-51.0); HEMOGLOBIN 14.5 GM/DL (13.0-17.0); KETONE, URINE NEG (NEG); LYMPH % 20.9 % (9.0-44.0); LYMPHOCYTE # 2.2 TH/MM3 (1.0-4.8); MEAN CELL VOLUME 93.7 FL (80.0-100.0); MEAN CORPUSCULAR HEMOGLOBIN 32.1 PG (27.0-34.0); MEAN CORPUSCULAR HGB CONC 34.3 % (32.0-36.0); MEAN PLATELET VOLUME 8.5 FL (7.0-11.0); MONO % 6.6 % (0.0-8.0); MONOCYTE # 0.7 TH/MM3 (0-0.9); NEUT % 70.2 % (16.0-70.0); NITRITE,URINE NEG (NEG); PH, URINE 5.5 (5.0-8.5); PLATELET COUNT 198 TH/MM3 (150-450); RED BLOOD COUNT 4.51 MIL/MM3 (4.50-5.90); RED CELL DISTRIBUTION WIDTH 13.5 % (11.6-17.2); URINE COLOR LIGHT-YELLOW (YELLW/STRAW); URINE LEUKOCYTE ESTERASE NEG (NEG); WHITE BLOOD COUNT 10.5 TH/MM3 (4.0-11.0)
--- NOTE | 2017-09-15 17:13 | PD ---
HPI Chief Complaint: General Weakness Time Seen by Provider: 16:43 Travel History International Travel<30 days: No Contact w/Intl Traveler<30days: No Traveled to known affect area: No History of Present Illness HPI 82-year-old male presents to the emergency department for evaluation of dizziness. Patient states he had a small episode of dizziness yesterday when he bent down. He states it only lasted a minute and went away. However, today , he has been having worsening dizziness with movement. He states that he lay still, the dizziness resolves. However, with movement, this dizziness will reappear. He states it feels like he has "floating". Patient denies any syncope. No headache or visual changes. No chest pain or shortness breath. No abdominal pain. No nausea, vomiting, diarrhea. Patient states that he had abdominal aortic aneurysm repair in June by Dr. Stovall. He states that he was told he had "a small leak". He states that since the surgery, he has had general fatigue and weakness as well as decreased appetite. Patient is not on anticoagulants. Exacerbating factor is movement. Alleviating factor is lying still. Moderate severity. PFSH Past Medical History Hx Anticoagulant Therapy: No AAA: Yes Arthritis: Yes Heart Rhythm Problems: Yes (ablation ) Cancer: No Cardiac Catheterization: Yes (ablation) Cardiovascular Problems: Yes (AAA) High Cholesterol: Yes Chest Pain: Yes Congestive Heart Failure: No Diabetes: Yes Patient Takes Glucophage: No Endocrine: Yes Gout: Yes Genitourinary: No Hepatitis: No Hiatal Hernia: No Hypertension: Yes Immune Disorder: Yes Implanted Vascular Access Dvce: Yes Kidney Stones: Yes (Multiple, required lithotripsy ) Musculoskeletal: Yes (gout, OA) Neurologic: Yes (HERNIATED DISK) Psychiatric: No Reproductive: No Respiratory: No Seizures: No Thyroid Disease: Yes Past Surgical History Abdominal Surgery: Yes (AAA REPAIR) Cardiac Surgery: Yes (CARDIAC ABLATION) Endocrine Surgery: No Eye Surgery: Yes (BILAT CATARACT SX) Genitourinary Surgery: Yes (KIDNEY STONE SX) Joint Replacement: Yes (BILAT HIP REPLACEMENTS.) Neurologic Surgery: Yes (LAMINECTOMY) Other Surgery: Yes (ablation, back surgery) Social History Alcohol Use: Yes (OCASSIONAL) Tobacco Use: No Substance Use: No Allergies-Medications (Allergen,Severity, Reaction): Coded Allergies: penicillin G (Unverified Allergy, Severe, Hives, 3/1/18) Reported Meds & Prescriptions Reported Meds & Active Scripts Active Reported Coq10 Maximum Strength (Coenzyme Q10 (Ubidecarenone)) 400 Mg Cap 200 Mg PO DAILY Montelukast (Montelukast Sodium) 10 Mg Tab 10 Mg PO HS Levothyroxine (Levothyroxine Sodium) 112 Mcg Tab 112 Mcg PO DAILY Pioglitazone (Pioglitazone HCl) 15 Mg Tab 15 Mg PO DAILY Allopurinol 300 Mg Tab 300 Mg PO DAILY Lisinopril 40 Mg Tab 40 Mg PO DAILY Simvastatin 20 Mg Tab 20 Mg PO DAILY Review of Systems Except as stated in HPI: all other systems reviewed are Neg Physical Exam Narrative GENERAL: Well-nourished, well-developed elderly male patient, afebrile. SKIN: Focused skin assessment warm/dry. HEAD: Normocephalic. Atraumatic. EYES: No scleral icterus. No injection or drainage. PERRLA. EOM intact. ENT: Mucosa pink and moist. No erythema or exudates. No uvular edema. No uvular , palatal, or tonsillar deviation. Airway patent. Nasal turbinates appear normal without nasal blood, purulent drainage or septal hematoma. Bilateral tympanic membranes are clear without erythema or perforation. NECK: Supple, trachea midline. No JVD or lymphadenopathy. CARDIOVASCULAR: Regular rate and rhythm without murmurs, gallops, or rubs. Bilateral radial and pedal pulses are 2+. RESPIRATORY: Breath sounds equal bilaterally. No accessory muscle use. Lungs sounds are clear to auscultation. GASTROINTESTINAL: Abdomen soft, non-tender, nondistended. MUSCULOSKELETAL: No cyanosis, or edema. Bilateral upper and lower extremity strength 5/5. All extremities are neurovascularly intact. BACK: Nontender without obvious deformity. No CVA tenderness. NEUROLOGICAL: Awake and alert. Cranial nerves II through XII intact. Motor and sensory grossly within normal limits. Five out of 5 muscle strength in all muscle groups. Normal speech.finger to nose is normal bilaterally. Heel-to- hamilton is normal bilaterally. Data Data Last Documented VS Vital Signs Date Time Temp Pulse Resp B/P (MAP) Pulse Ox O2 Delivery O2 Flow Rate FiO2 09/15/17 19:16 81 16 158/82 (107) 97 Room Air 09/15/17 15:47 98.3 Orders Orders Electrocardiogram (09/15/17 15:57) Complete Blood Count With Diff (3/1/18 15:57) Comprehensive Metabolic Panel (09/15/17 15:57) Urinalysis - C+S If Indicated (09/15/17 15:57) Magnesium (Mg) (09/15/17 17:03) Ckmb (Isoenzyme) Profile (09/15/17 17:03) Troponin I (09/15/17 17:03) Act Partial Throm Time (Ptt) (09/15/17 17:03) Prothrombin Time / Inr (Pt) (09/15/17 17:03) Chest, Single Ap (09/15/17 17:03) Ct Brain W/O Iv Contrast(Rout) (09/15/17 17:03) Blood Glucose (09/15/17 17:03) Ecg Monitoring (09/15/17 17:03) Iv Access Insert/Monitor (09/15/17 17:03) Oximetry (09/15/17 17:03) Meclizine (Antivert) (09/15/17 17:15) Ondansetron Inj (Zofran Inj) (09/15/17 17:15) Sodium Chloride 0.9% Flush (Ns Flush) (09/15/17 17:15) Sodium Chlor 0.9% 1000 Ml Inj (Ns 1000 M (09/15/17 17:03) Orthostatic Vital Signs (09/15/17 17:03) Cta Thor Abd Aorta W Iv C W3d (09/15/17 ) Thyroid Stimulating Hormone (09/15/17 17:03) Iohexol 350 Inj (Omnipaque 350 Inj) (09/15/17 18:18) Labs Laboratory Tests Test 09/15/17 16:19 09/15/17 17:24 White Blood Count 10.5 TH/MM3 Red Blood Count 4.51 MIL/MM3 Hemoglobin 14.5 GM/DL Hematocrit 42.3 % Mean Corpuscular Volume 93.7 FL Mean Corpuscular Hemoglobin 32.1 PG Mean Corpuscular Hemoglobin Concent 34.3 % Red Cell Distribution Width 13.5 % Platelet Count 198 TH/MM3 Mean Platelet Volume 8.5 FL Neutrophils (%) (Auto) 70.2 % Lymphocytes (%) (Auto) 20.9 % Monocytes (%) (Auto) 6.6 % Eosinophils (%) (Auto) 1.7 % Basophils (%) (Auto) 0.6 % Neutrophils # (Auto) 7.4 TH/MM3 Lymphocytes # (Auto) 2.2 TH/MM3 Monocytes # (Auto) 0.7 TH/MM3 Eosinophils # (Auto) 0.2 TH/MM3 Basophils # (Auto) 0.1 TH/MM3 CBC Comment DIFF FINAL Differential Comment Urine Color LIGHT-YELLOW Urine Turbidity CLEAR Urine pH 5.5 Urine Specific Brandon 1.010 Urine Protein NEG mg/dL Urine Glucose (UA) NEG mg/dL Urine Ketones NEG mg/dL Urine Occult Blood TRACE Urine Nitrite NEG Urine Bilirubin NEG Urine Urobilinogen LESS THAN 2.0 MG/DL Urine Leukocyte Esterase NEG Urine RBC LESS THAN 1 /hpf Urine WBC LESS THAN 1 /hpf Microscopic Urinalysis Comment CULT NOT INDICATED Blood Urea Nitrogen 17 MG/DL Creatinine 1.09 MG/DL Random Glucose 87 MG/DL Total Protein 7.8 GM/DL Albumin 3.8 GM/DL Calcium Level 9.5 MG/DL Alkaline Phosphatase 62 U/L Aspartate Amino Transf (AST/SGOT) 23 U/L Alanine Aminotransferase (ALT/SGPT) 14 U/L Total Bilirubin 0.4 MG/DL Sodium Level 141 MEQ/L Potassium Level 4.3 MEQ/L Chloride Level 105 MEQ/L Carbon Dioxide Level 23.9 MEQ/L Anion Gap 12 MEQ/L Estimat Glomerular Filtration Rate 65 ML/MIN Magnesium Level 2.0 MG/DL Total Creatine Kinase 56 U/L Troponin I LESS THAN 0.02 NG/ML Thyroid Stimulating Hormone 3rd Gen 1.100 uIU/ML Prothrombin Time 10.6 SEC Prothromb Time International Ratio 1.0 RATIO Activated Partial Thromboplast Time 32.4 SEC MDM Medical Decision Making Medical Screen Exam Complete: Yes Emergency Medical Condition: Yes Medical Record Reviewed: Yes Interpretation(s) Last Impressions Head CT 09/15/17 170 Signed Impressions: Service Date/Time: September 18:10 - CONCLUSION: No acute disease. Oziel Burkett MD Chest X-Ray 09/15/171702 Signed Impressions: Service Date/Time: September 17:16 - CONCLUSION: Normal examination. González Barrera MD Aorta CTA 09/15/17 0000 Signed Impressions: Service Date/Time: Thursday, September 15, 2017 18:15 - CONCLUSION: 1. Contrast outside the stent graft within the thrombosed lumen of the aneurysm suggesting endoleak. Clinical correlation is recommended. The aneurysm measures 5.6 cm transverse by 5.5 cm AP dimension. 2. Uncomplicated colonic diverticulosis. 3. Minimal ascites. 4. Cholelithiasis. 5. 1.8 cm left renal cyst. 6. Cardiomegaly and coronary artery calcifications. 7. Degenerative changes throughout the thoracic and lumbar spine. 8. Scattered fibrotic scarring within the lungs. Oziel Burkett MD Differential Diagnosis Vertigo versus electrolyte abnormality versus dehydration versus intracranial abnormality versus UTI versus AAA repair leak Narrative Course 82-year-old male presents to the emergency department for evaluation of dizziness that started yesterday, worsened today as well as fatigue, weakness, decreased appetite since AAA surgery in June. EKG shows SR, HR 88, no acute ST changes. CBC, CMP, Magnesium, CK, troponin, TSH, PTT, PT/INR, UA are ordered and pending. Orthostatic VS are ordered and pending. Chest x-ray, CT brain, CTA aorta are ordered and pending. Patient is given Meclizine 25 mg PO, Zofran 4mg IV, NS 1 L IV bolus. CBC shows no acute abnormality. CMP is unremarkable. CK is 56. Troponin is less than 0.02. Magnesium is 2.0. TSH is 1.100. Coags show no acute abnormality. UA is negative for acute infection. Orthostatic VS are negative for are negative for orthostatic hypotension. Chest x-ray is normal. CT of the brain shows no acute disease. CT Aorta shows contrast outside the stent graft with and the thrombosed ligament of the aneurysm suggesting endoleak. Clinical correlation is recommended. In years and measures 5.6 cm transverse by 5.5 cm AP dimension. Uncomplicated diverticulosis. Minimal ascites. Cholelithiasis. 1.8 cm left renal cyst. Cardiomegaly and coronary artery calcifications. Degenerative changes throughout the thoracic and lumbar spine. Scattered fibrotic scarring within the lungs. 1913 - I spoke with Dr. Stovall, vascular surgeon, regarding CTA aorta results. He reviewed the CT imaging himself. He states the patient is stable to follow- up in the clinic. He states that his office will reach alcohol to him. I discussed the case with my attending physician, Dr. Higginbotham, who agrees with plan and disposition. The patient is ambulatory in the emergency department with a steady gait. I discussed the findings with the patient. He feels comfortable going home. He states that after meclizine, all his symptoms have resolved. He will be discharged a prescription for meclizine for home. He is instructed to follow with Dr. Stovall and his primary care physician. He is to return here for any acute worsening of symptoms. The patient was discharged in stable condition with instructions, including return instructions and follow up instructions. Diagnosis Primary Impression: Vertigo Referrals: Oziel Stovall MD call for appointment Primary Care Physician call for appointment Patient Instructions: General Instructions, Vertigo (ED) Additional Instructions: Take meclizine as directed as needed for dizziness. Drink plenty of fluids. Follow-up with your primary care physician and Dr. Stovall. Return to the emergency department for any acute worsening of symptoms. Med/Other Pt SpecificInfo: Prescription(s) given Scripts Meclizine (Meclizine) 25 Mg Tab 25 MG PO TID Y for VERTIGO, #20 TAB 0 Refills Prov: Eneida Arenas 09/15/17 Disposition: 01 DISCHARGE HOME Condition: Stable Eneida Arenas Sep 15, 2017 17:13
[2017-09-15] MEDS ORDERED: ONDANSETRON HCL 4 MG/2 ML VIAL IVP ONE (17:15)
[2017-09-15] MEDS ORDERED: SODIUM CHLORIDE 0.9% FLUSH 10 ML FLUSH IVF PRN (17:15)
[2017-09-15] MEDS ORDERED: MECLIZINE HCL 25 MG TAB PO ONE (17:15)
[2017-09-15 17:16] LABS: ALBUMIN 3.8 GM/DL (3.4-5.0); AST (GOT) 23 U/L (15-37); BICARBONATE 23.9 MEQ/L (21.0-32.0); BLOOD UREA NITROGEN 17 MG/DL (7-18); CALCIUM 9.5 MG/DL (8.5-10.1); CHLORIDE 105 MEQ/L (98-107); CREATININE 1.09 MG/DL (0.60-1.30); GLOMERULAR FILTRATION RATE 65 ML/MIN (>89); GLUCOSE,RANDOM 87 MG/DL (74-106); SODIUM (NA) 141 MEQ/L (136-145)
[2017-09-15 17:17] LABS: ALT (GPT) 14 U/L (12-78)
[2017-09-15 17:19] LABS: ALKALINE PHOSPHATASE 62 U/L (45-117); TOTAL BILIRUBIN ADULT 0.4 MG/DL (0.2-1.0); TOTAL PROTEIN 7.8 GM/DL (6.4-8.2)
[2017-09-15 17:38] LABS: TROPONIN I LESS THAN 0.02 NG/ML (0.02-0.05)
--- NOTE | 2017-09-15 17:42 | RADRPT ---
EXAM DATE/TIME: 09/15/2017 17:16 [facility] COMPARISON: CHEST SINGLE AP, August 28, 2014, 18:57. INDICATIONS : Short of breath MEDICAL HISTORY : Aneurysm, abdominal. Cardiovascular disease Renal calculi.Hypertension. SURGICAL HISTORY : None. ENCOUNTER: Initial ACUITY: 1 day PAIN SCORE: 0/10 LOCATION: chest FINDINGS: A single view of the chest demonstrates the lungs to be symmetrically aerated without evidence of mas s, infiltrate or effusion. The cardiomediastinal contours are unremarkable. Osseous structures are intact. CONCLUSION: Normal examination. González Barrera MD on September 15, 2017 at 17:41 Board Certified Radiologist. This report was verified electronically.
[2017-09-15 17:53] LABS: PROTHROMBIN TIME - PATIENT 10.6 SEC (9.8-11.6)
[2017-09-15] MEDS ORDERED: IOHEXOL 350 MG/ML 10 ML VIAL (for RAD DIAG) IVCONTRAST ONE (18:18)
--- NOTE | 2017-09-15 18:23 | RADRPT ---
EXAM DATE/TIME: 09/15/2017 18:10 [facility] COMPARISON: No previous studies available for comparison. INDICATIONS : Dizziness. RADIATION DOSE: 55.72 CTDIvol (mGy) MEDICAL HISTORY : None SURGICAL HISTORY : None. ENCOUNTER: Initial ACUITY: 1 day PAIN SCALE: 0/10 LOCATION: cranial TECHNIQUE: Multiple contiguous axial images were obtained of the head. Using automated exposure control and adj ustment of the mA and/or kV according to patient size, radiation dose was kept as low as reasonably a chievable to obtain optimal diagnostic quality images. DICOM format image data is available electro nically for review and comparison. FINDINGS: CEREBRUM: The ventricles are normal for age. No evidence of midline shift, mass lesion, hemorrhage or acute in farction. No extra-axial fluid collections are seen. POSTERIOR FOSSA: The cerebellum and brainstem are intact. The 4th ventricle is midline. The cerebellopontine angle i s unremarkable. EXTRACRANIAL: The visualized portion of the orbits is intact. SKULL: The calvaria is intact. No evidence of skull fracture. CONCLUSION: No acute disease. Oziel Burkett MD on September 15, 2017 at 18:22 Board Certified Radiologist. This report was verified electronically.
--- NOTE | 2017-09-15 18:58 | RADRPT ---
EXAM DATE/TIME: 09/15/2017 18:15 [facility] COMPARISON: No previous studies available for comparison. INDICATIONS : Dizziness. IV CONTRAST: 100 cc Omnipaque 350 (iohexol) IV RADIATION DOSE: 17.10 CTDIvol (mGy) MEDICAL HISTORY : Aneurysm, abdominal. Cardiovascular disease Renal calculi. SURGICAL HISTORY : Abdominal aortic aneurysm repair. Hip replacement, bilateral. ENCOUNTER: Initial ACUITY: 1 day PAIN SCALE: 0/10 LOCATION: chest TECHNIQUE: Volumetric scanning was performed using a multi-row detector CT scanner. The data was post processed with a variety of visualization algorithms including full volume maximum intensity projection, multi -planar sliding thin slab reformation, curved planar reformation, and surface rendering techniques. Using automated exposure control and adjustment of the mA and/or kV according to patient size, radiat ion dose was kept as low as reasonably achievable to obtain optimal diagnostic quality images. DICOM format image data is available electronically for review and comparison. FINDINGS: LUNGS: There is no consolidation or pneumothorax. No concerning pulmonary nodule is visualized. No pleural fluid is present. MEDIASTINUM: No abnormally enlarged lymph nodes by CT criteria. No axillary or hilar abnormalities are identified. The heart is enlarged. Coronary artery calcifications are noted. ABDOMEN: Uncomplicated colonic diverticulosis is noted. Minimal ascites is noted. The liver and spleen are tre e of focal defects. Calcified gallstones are noted within the gallbladder lumen. The pancreas demonst rate no abnormality. The adrenal glands are normal. The kidneys demonstrate no evidence of solid serenity l mass or hydronephrosis. There is a left renal cyst measuring 18 mm. No free fluid or abdominal mass es are identified. No para-aortic adenopathy is seen. PELVIS: Minimal ascites is noted. No evidence of pelvic mass. No abnormally enlarged inguinal or retroperiton eal lymph nodes are present. The bladder is unremarkable. THORACIC AORTA: The thoracic aortic root is normal with normal branching of the great vessels. There is no evidence of aneurysm or dissection. ABDOMINAL AORTA: There is evidence of a stent graft within the bilobed abdominal aortic aneurysm. There is contrast ou tside the stent graft within the thrombosed lumen of the aneurysm suggesting endoleak. Clinical corre lation is recommended. The aneurysm measures 5.6 cm transverse by 5.5 cm AP dimension. PELVIC VESSELS: The internal iliac and external iliac vessels are patent without aneurysm or stenosis. CONCLUSION: 1. Contrast outside the stent graft within the thrombosed lumen of the aneurysm suggesting endoleak. Clinical correlation is recommended. The aneurysm measures 5.6 cm transverse by 5.5 cm AP dimension. 2. Uncomplicated colonic diverticulosis. 3. Minimal ascites. 4. Cholelithiasis. 5. 1.8 cm left renal cyst. 6. Cardiomegaly and coronary artery calcifications. 7. Degenerative changes throughout the thoracic and lumbar spine. 8. Scattered fibrotic scarring within the lungs. Oziel Burkett MD on September 15, 2017 at 18:48 Board Certified Radiologist. This report was verified electronically.
[2017-09-15 19:16] VITALS: BP 158/82; PULSE 81; RESP 16; O2SAT 97
[2017-09-15] MEDS ORDERED: MECL-62 PO (19:32)
[2017-09-15 19:33] VITALS: BP_SYST 132; BP_SYST 143; BP_SYST 147; BP_DIAS 74; BP_DIAS 76; BP_DIAS 82
--- NOTE | 2017-09-16 11:51 | EKG ---
Date Performed: 09/15/2017 Time Performed: 16:07:30 PTAGE: 82 years EKG: Sinus rhythm WITH OCCASIONAL SUPRAVENTRICULAR PREMATURE COMPLEXES SEPTAL MYOCARDIAL INFARCTION ABNORMAL ECG PREVIOUS TRACING 06/30/17 Since the prior tracing, there has been no significant change DOCTOR: Jessica Viramontes Interpretating Date/Time 09/16/2017 11:50:45
== END 2017-09-15 19:51 | disposition home or self-care (01) ==
LOC: NEPC 15:39
DX: R42 Dizziness and giddiness (principal); E07.9 Disorder of thyroid, unspecified; E78.00 Pure hypercholesterolemia, unspecified; I10 Essential (primary) hypertension; I71.4 Abdominal aortic aneurysm, without rupture; I51.7 Cardiomegaly; R06.02 Shortness of breath; Z79.899 Other long term (current) drug therapy
CPT/HCPCS: 70450; 71045; 71275; 74174; 80053; 81001; 82550; 83735; 84443; 84484; 85025; 85610; 85730; 93005; 96361; 96374; 99285; J2405; J7030; Q9967